=== PATIENT | female | born 1950 | race Caucasian/White ===

== ENCOUNTER 2016-11-09 14:52 | Emergency (ER) | payer MEDICARE, BC ==
[~2016-11-09] VITALS: Ht 167.6 cm; Wt 70.0 kg
[~2016-11-09 14:52] MED LIST: ASPI-664 PO; CALC1TAB79 PO; CARV3.1260 PO; CITA20TA11 PO; DOCU250C58 PO; GABA100C14 PO; IBUP800T25 PO; LAMO150T PO; LIOT25TA3 PO; LOSA100T7 PO; MULT1TAB6 PO; OLAN15TA7 PO; OLAN5TAB5 PO; OXYB10TA6 PO
[2016-11-09 15:00] VITALS: Ht 167.6 cm; Wt 70.0 kg
[2016-11-09] MEDS ORDERED: SOD CHLORIDE 0.9% 1,000 ML IV STA (15:07)
[2016-11-09] MEDS ORDERED: DIPHENOXYLATE/ATROPINE TAB PO ONE (15:30)
[2016-11-09] MEDS ORDERED: LORA0.5T PO (16:02)
[2016-11-09] MEDS ORDERED: IBUP-1542 PO (16:03)
[2016-11-09] MEDS ORDERED: OLAN5TAB5 PO (16:04)
[2016-11-09] MEDS ORDERED: CLC1500T PO (16:05)
[2016-11-09] MEDS ORDERED: ASPI-664 PO (16:06)
[2016-11-09 16:28] LABS: ADD SCAN DIFF NO
[2016-11-09 16:38] LABS: EOSINOPHILS # 0.1 10^3/ul (0.0-0.5); EOSINOPHILS % 2.4 % (0.0-7.0); HEMOGLOBIN 10.7 g/dl (12.0-16.0); LYMPHOCYTES # 0.8 10^3/ul (0.8-2.9); LYMPHOCYTES % 18.2 % (15.0-51.0); MEAN CORPUSCULAR HEMOGLOBIN 29.2 pg (29.0-33.0); MEAN CORPUSCULAR HGB CONC 32.4 g/dl (32.0-37.0); MEAN CORPUSCULAR VOLUME 90.2 fl (82.0-101.0); MEAN PLATELET VOLUME 10.5 fl (7.4-10.4); MONOCYTE # 0.4 10^3/ul (0.3-0.9); MONOCYTES % 9.2 % (0.0-11.0); NEUTROPHIL # 3.2 10^3/ul (1.6-7.5); PLATELET COUNT 183 10^3/UL (140-415); RED BLOOD COUNT 3.66 10^6/ul (4.20-5.40); RED CELL DISTRIBUTION WIDTH 13.8 % (11.5-14.5); WHITE BLOOD COUNT 4.6 10^3/ul (4.8-10.8)
[2016-11-09 16:56] LABS: ALBUMIN 3.4 g/dl (3.3-4.9)
[2016-11-09 16:57] LABS: POTASSIUM 3.5 mmol/L (3.5-5.1)
[2016-11-09 16:59] LABS: BILIRUBIN,INDIRECT 0.1 mg/dl (0-1.1); BILIRUBIN,TOTAL 0.1 mg/dl (0.2-1.3); CREATININE 0.72 mg/dl (0.44-1.00)
[2016-11-09 17:00] LABS: CALCIUM 8.7 mg/dl (8.4-10.2); TOTAL PROTEIN 6.1 g/dl (6.1-8.1)
[2016-11-09 17:01] LABS: ALBUMIN/GLOBULIN RATIO 1.25
[2016-11-09] MEDS ORDERED: DIPH1TAB PO (17:28)
--- NOTE | 2016-11-09 17:43 | ERD ---
ER Documentation Chief Complaint Date/Time DATE: 11/09/16 TIME: 17:42 Chief Complaint BIB BLS AMBULANCE FOR EVAL OF DIARRHEA. HPI Patient is a 58-year-old female with dementia who presents for diarrhea. Please note the history and physical exam is limited secondary to the patient's dementia. The patient was brought in by ambulance. She was sent from a nursing facility. The diarrhea started yesterday. She has no fevers and no vomiting. Upon review of old medical record she had one previous visit 2016. Her primary doctor is Dr. Jorgensen. ROS All systems reviewed and are negative except as per history of present illness. Medications Home Meds Active Scripts Diphenoxylate HCl/Atropine (Lomotil 2.5-0.025 mg Tablet) 1 Each Tablet, 1 TAB PO QID Y for DIARRHEA, #10 TAB Prov:FLOYD HAIDER MD 11/09/16 Reported Medications Aspirin* (Aspirin* EC) 81 Mg Tablet.dr, 81 MG PO DAILY, TAB 11/09/16 Calcium Carbonate* (Caltrate-600*) 600 MG Calcium Tab, 1200 MG PO DAILY, TAB (1500 mg Calcium Carbonate) 11/09/16 Olanzapine* (Zyprexa*) 5 Mg Tablet, 5 MG PO QHS, #30 TAB 11/09/16 Ibuprofen* (Ibuprofen*) 600 Mg Tablet, 600 MG PO BID Y for PRN, TAB 11/09/16 Lorazepam* (Lorazepam*) 0.5 Mg Tablet, 0.5 MG PO BID Y for ANXIETY, TAB 11/09/16 Citalopram Hydrobromide* (Celexa*) 20 Mg Tablet, 20 MG PO DAILY, #30 TAB 07/09/16 Losartan Potassium* (Losartan Potassium*) 100 Mg Tablet, 100 MG PO DAILY, TAB 07/09/16 Liothyronine Sodium* (Cytomel*) 25 Mcg Tablet, 25 MCG PO DAILY, TAB 07/09/16 Lamotrigine* (Lamotrigine*) 150 Mg Tablet, 150 MG PO QAM, TAB 07/09/16 Carvedilol* (Carvedilol*) 3.125 Mg Tablet, 3.125 MG PO BID, #60 TAB 07/09/16 Discontinued Reported Medications Ibuprofen* (Motrin*) 800 Mg Tab, 800 MG PO TID, TAB 07/09/16 Folic Acid/Mv,Fe,Other Min (Centrum Complete Multivit Tab) 1 Each Tablet, 1 EACH PO DAILY, TAB 07/09/16 Calcium Carbonate/Vitamin D3 (Oysco 500+D Tablet) 1 Each Tablet, 2 EACH PO DAILY , TAB 07/09/16 Aspirin (Low Dose Aspirin) 81 Mg Tablet.dr, 81 MG PO DAILY, #30 TAB 07/09/16 Olanzapine* (Zyprexa*) 5 Mg Tablet, 5 MG PO QHS, #30 TAB 07/09/16 Olanzapine* (Olanzapine*) 15 Mg Tablet, 30 MG PO DAILY, TAB 07/09/16 Gabapentin* (Gabapentin*) 100 Mg Capsule, 100 MG PO TID, #90 CAP 07/09/16 Docusate Sodium* (Colace*) 250 Mg Capsule, 250 MG PO DAILY, #30 CAP 07/09/16 Oxybutynin Chloride* (Ditropan* XL) 10 Mg Tab.er.24, 10 MG PO DAILY, TAB.SA 07/09/16 Allergies Allergies: Coded Allergies: No Known Allergy (Unverified , 11/09/16) PMhx/Soc History of Surgery: No Anesthesia Reaction: No Hx Neurological Disorder: Yes Hx Respiratory Disorders: No Hx Cardiac Disorders: Yes Hx Psychiatric Problems: No Hx Miscellaneous Medical Probl: Yes (depression, anxiety,hypothyroidism, neuropathy,psychosis) Hx Alcohol Use: No Hx Substance Use: No Hx Tobacco Use: No Smoking Status: Never smoker FmHx Unable to obtain Physical Exam Vitals Vital Signs Date Time Temp Pulse Resp B/P Pulse Ox O2 Delivery O2 Flow Rate FiO2 11/09/16 15:00 97.8 58 20 128/81 97 Physical Exam Const: No acute distress Head: Atraumatic Eyes: Normal Conjunctiva ENT: Normal External Ears, Nose and Mouth. Neck: Full range of motion..~ No meningismus. Resp: Clear to auscultation bilaterally Cardio: Regular rate and rhythm, no murmurs Abd: Soft, non tender, non distended. Normal bowel sounds Skin: No petechiae or rashes Back: No midline or flank tenderness Ext: No cyanosis, or edema Neur: Awake but demented at baseline Result Diagram: 11/09/16 1620 11/09/16 1620 Results 24 hrs Laboratory Tests Test 11/09/16 16:20 Alanine Aminotransferase (ALT/SGPT) 29IU/L Albumin 3.4g/dl Albumin/Globulin Ratio 1.25 Alkaline Phosphatase 81IU/L Anion Gap 16 Aspartate Amino Transf (AST/SGOT) 27IU/L Basophils # 0.010^3/ul Basophils % 0.0% Blood Urea Nitrogen 20mg/dl Calcium Level 8.7mg/dl Carbon Dioxide Level 24mmol/L Chloride Level 110mmol/L Creatinine 0.72mg/dl Direct Bilirubin 0.00mg/dl Eosinophils # 0.110^3/ul Eosinophils % 2.4% Globulin 2.70g/dl Glucose Level 74mg/dl Hematocrit 33.0% Hemoglobin 10.7g/dl Indirect Bilirubin 0.1mg/dl Lipase 64U/L Lymphocytes # 0.810^3/ul Lymphocytes % 18.2% Mean Corpuscular Hemoglobin 29.2pg Mean Corpuscular Hemoglobin Concent 32.4g/dl Mean Corpuscular Volume 90.2fl Mean Platelet Volume 10.5fl Monocytes # 0.410^3/ul Monocytes % 9.2% Neutrophils # 3.210^3/ul Neutrophils % 70.0% Nucleated Red Blood Cells # 0.010^3/ul Nucleated Red Blood Cells % 0.0/100WBC Platelet Count 66565^3/UL Potassium Level 3.5mmol/L Red Blood Count 3.6610^6/ul Red Cell Distribution Width 13.8% Sodium Level 146mmol/L Total Bilirubin 0.1mg/dl Total Protein 6.1g/dl White Blood Count 4.610^3/ul Current Medications Medications (Trade) Dose Ordered Sig/Jerod Route PRN Reason Start Time Stop Time Status Last Admin Dose Admin Sodium Chloride (NS) 1,000 ml @ 1,000 mls/hr Q1H STAT IV 11/09/16 15:07 11/09/16 16:06 DC 11/09/16 16:59 Diphenoxylate HCl/ Atropine (Lomotil) 2 tab ONCE ONCE PO 11/09/16 15:30 11/09/16 15:31 DC 11/09/16 17:27 Procedures/[facility] Patient is a 66-year-old female with dementia who presents with diarrhea. She was given Lomotil in the emergency department. Laboratory studies are basically normal and her electrolytes are normal. White blood cell count is normal and I doubt C. difficile diarrhea. The patient will be discharged back to the nursing facility. She was given 1 L of normal saline for fluid resuscitation. She can return for any worsening symptoms. She should follow- up with Dr. Jorgensen within 24-48 hours. She has anemia but does not require transfusion at this time. Departure Diagnosis: Primary Impression: Diarrhea Diarrhea type: unspecified type Qualified Code: R19.7 - Diarrhea, unspecified type Additional Impression: Anemia Anemia type: unspecified type Qualified Code: D64.9 - Anemia, unspecified type Condition: Fair Patient Instructions: Self-Care for Vomiting and Diarrhea Referrals: ARYA JORGENSEN MD Additional Instructions: Call your primary care doctor TOMORROW for an appointment during the next 1-2 days.See the doctor sooner or return here if your condition worsens before your appointment time. FLOYD HAIDER MD Nov 09, 2016 17:43
[2016-11-09 19:33] VITALS: BP 182/93; PULSE 88; RESP 18; TEMP 98
== END 2016-11-09 19:34 | disposition home or self-care (01) ==
LOC: E/R 14:52
DX: R19.7 Diarrhea, unspecified (principal); D64.9 Anemia, unspecified; E03.9 Hypothyroidism, unspecified; Z79.82 Long term (current) use of aspirin
CPT/HCPCS: 80053; 83690; 85025; 99284; J7030

== ENCOUNTER 2017-01-19 00:53 | Emergency (ER) | payer MEDICARE, BC ==
[~2017-01-19] VITALS: Ht 167.6 cm; Wt 64.0 kg
[~2017-01-19 00:53] MED LIST changes: -CALC1TAB79 PO; +CLC1500T PO; +DIPH1TAB PO; -DOCU250C58 PO; -GABA100C14 PO; +IBUP-1542 PO; -IBUP800T25 PO; +LORA0.5T PO; -MULT1TAB6 PO; -OLAN15TA7 PO; -OXYB10TA6 PO
[2017-01-19 01:18] VITALS: Ht 167.6 cm; Wt 64.0 kg
--- NOTE | 2017-01-19 01:56 | ERA ---
ER Documentation Chief Complaint Date/Time DATE: 01/19/17 TIME: 01:56 Chief Complaint SENT BY SNF FOR FALL WHILE USING THE TOILET, NO KO. PT DENIES COMPLAINTS HPI The patient is a 66-year-old female, presenting to the ER because she failed while she was using the toilet. She denies any symptom but wanted to go to the ER according to the signal engineer. The history is very limited to because she is demented Past medical history: Hypertension, hypothyroidism, dementia, anemia, depression ROS All systems reviewed and are negative except as per history of present illness. Medications Home Meds Active Scripts Diphenoxylate HCl/Atropine (Lomotil 2.5-0.025 mg Tablet) 1 Each Tablet, 1 TAB PO QID Y for DIARRHEA, #10 TAB Prov:FLOYD HAIDER MD 11/09/16 Reported Medications Aspirin* (Aspirin* EC) 81 Mg Tablet.dr, 81 MG PO DAILY, TAB 11/09/16 Calcium Carbonate* (Caltrate-600*) 600 MG Calcium Tab, 1200 MG PO DAILY, TAB (1500 mg Calcium Carbonate) 11/09/16 Olanzapine* (Zyprexa*) 5 Mg Tablet, 5 MG PO QHS, #30 TAB 11/09/16 Ibuprofen* (Ibuprofen*) 600 Mg Tablet, 600 MG PO BID Y for PRN, TAB 11/09/16 Lorazepam* (Lorazepam*) 0.5 Mg Tablet, 0.5 MG PO BID Y for ANXIETY, TAB 11/09/16 Citalopram Hydrobromide* (Celexa*) 20 Mg Tablet, 20 MG PO DAILY, #30 TAB 07/09/16 Losartan Potassium* (Losartan Potassium*) 100 Mg Tablet, 100 MG PO DAILY, TAB 07/09/16 Liothyronine Sodium* (Cytomel*) 25 Mcg Tablet, 25 MCG PO DAILY, TAB 07/09/16 Lamotrigine* (Lamotrigine*) 150 Mg Tablet, 150 MG PO QAM, TAB 07/09/16 Carvedilol* (Carvedilol*) 3.125 Mg Tablet, 3.125 MG PO BID, #60 TAB 07/09/16 Allergies Allergies: Coded Allergies: No Known Allergy (Unverified , 11/09/16) PMhx/Soc History of Surgery: No Anesthesia Reaction: No Hx Neurological Disorder: Yes (DEMENTIA) Hx Respiratory Disorders: No Hx Cardiac Disorders: Yes (HTN) Hx Psychiatric Problems: No Hx Miscellaneous Medical Probl: Yes (depression, anxiety,hypothyroidism, neuropathy,psychosis) Hx Alcohol Use: No Hx Substance Use: No Hx Tobacco Use: No Smoking Status: Never smoker Physical Exam Vitals Vital Signs Date Time Temp Pulse Resp B/P Pulse Ox O2 Delivery O2 Flow Rate FiO2 01/19/17 01:18 97.9 56 18 168/81 94 Physical Exam Const: No acute distress. Head: Atraumatic. Eyes: Normal Conjunctiva. ENT: Normal External Ears, Nose and Mouth. Neck: Full range of motion. No meningismus. Resp: Clear to auscultation bilaterally. Cardio: Regular rate and rhythm, no murmurs. Abd: Soft, non distended, normal bowel sounds, non tender. Skin: No petechiae or rashes. Back: No midline or flank tenderness. Ext: No cyanosis, or edema. Neur: Awake and alert. No focal deficit Psych: Demented Result Diagram: 01/19/17 0246 01/19/17 0246 Results 24 hrs Laboratory Tests Test 01/19/17 02:46 White Blood Count 5.410^3/ul Red Blood Count 4.0910^6/ul Hemoglobin 12.2g/dl Hematocrit 36.4% Mean Corpuscular Volume 89.0fl Mean Corpuscular Hemoglobin 29.8pg Mean Corpuscular Hemoglobin Concent 33.5g/dl Red Cell Distribution Width 13.7% Platelet Count 40799^3/UL Mean Platelet Volume 10.7fl Neutrophils % 73.5% Lymphocytes % 16.4% Monocytes % 7.8% Eosinophils % 1.9% Basophils % 0.0% Nucleated Red Blood Cells % 0.0/100WBC Neutrophils # 4.010^3/ul Lymphocytes # 0.910^3/ul Monocytes # 0.410^3/ul Eosinophils # 0.110^3/ul Basophils # 0.010^3/ul Nucleated Red Blood Cells # 0.010^3/ul Sodium Level 145mmol/L Potassium Level 3.9mmol/L Chloride Level 108mmol/L Carbon Dioxide Level 28mmol/L Anion Gap 13 Blood Urea Nitrogen 26mg/dl Creatinine 0.65mg/dl Glucose Level 87mg/dl Calcium Level 9.1mg/dl Current Medications Medications (Trade) Dose Ordered Sig/Jerod Route PRN Reason Start Time Stop Time Status Last Admin Dose Admin Olanzapine (Zyprexa) 5 mg ONCE ONCE PO 01/19/17 03:30 01/19/17 03:31 DC 01/19/17 03:44 Procedures/MDM MEDICAL MAKING DECISION: The patient is a 58-year-old female, presenting with acute mechanical fall without significant injury. The differential diagnoses considered include but are not limited to fracture, contusion, sprain Departure Diagnosis: Primary Impression: Fall with no significant injury Condition: Stable Comments I discussed the findings with the patient. I advised the patient to follow-up with the primary physician in about 1-2 days, sooner if needed and return if any concern. JASSI LAIRD MD January 19, 2017 01:56
[2017-01-19 02:50] LABS: ADD SCAN DIFF NO
[2017-01-19 02:53] LABS: EOSINOPHILS # 0.1 10^3/ul (0.0-0.5); EOSINOPHILS % 1.9 % (0.0-7.0); HEMATOCRIT 36.4 % (37.0-47.0); HEMOGLOBIN 12.2 g/dl (12.0-16.0); LYMPHOCYTES # 0.9 10^3/ul (0.8-2.9); LYMPHOCYTES % 16.4 % (15.0-51.0); MEAN CORPUSCULAR HEMOGLOBIN 29.8 pg (29.0-33.0); MEAN CORPUSCULAR HGB CONC 33.5 g/dl (32.0-37.0); MEAN PLATELET VOLUME 10.7 fl (7.4-10.4); MONOCYTE # 0.4 10^3/ul (0.3-0.9); MONOCYTES % 7.8 % (0.0-11.0); NEUTROPHILS % 73.5 % (39.0-77.0); PLATELET COUNT 166 10^3/UL (140-415); RED BLOOD COUNT 4.09 10^6/ul (4.20-5.40); RED CELL DISTRIBUTION WIDTH 13.7 % (11.5-14.5); WHITE BLOOD COUNT 5.4 10^3/ul (4.8-10.8)
[2017-01-19] MEDS ORDERED: OLANZAPINE 5 MG TAB PO ONE (03:30)
[2017-01-19 03:34] LABS: POTASSIUM 3.9 mmol/L (3.5-5.1)
[2017-01-19 03:37] LABS: CREATININE 0.65 mg/dl (0.44-1.00)
[2017-01-19 03:38] LABS: CALCIUM 9.1 mg/dl (8.4-10.2)
[2017-01-19 05:32] VITALS: PULSE 54
[2017-01-19 06:57] VITALS: BP 178/71; RESP 16
[2017-01-19] MEDS ORDERED: LOSARTAN 50 MG TAB PO ONE (07:00)
[2017-01-19] MEDS ORDERED: ONDA4TAB95 PO (16:51)
[2017-01-19] MEDS ORDERED: OLAN2.5T4 PO (16:52)
[2017-01-19] MEDS ORDERED: OLAN5TAB5 PO (16:53)
[2017-01-19] MEDS ORDERED: MULT1TAB PO (16:54)
[2017-01-19] MEDS ORDERED: OXYB10TA6 PO (16:54)
[2017-01-19] MEDS ORDERED: DOCU250C58 PO (16:54)
[2017-01-19] MEDS ORDERED: GABA100C14 PO (16:55)
== END 2017-01-19 08:12 | disposition home or self-care (01) ==
LOC: E/R 00:53
DX: Z04.3 Encounter for examination and observation following other accident (principal); I10 Essential (primary) hypertension; E03.9 Hypothyroidism, unspecified; Z79.82 Long term (current) use of aspirin
CPT/HCPCS: 80048; 85025; 99283

== ENCOUNTER 2017-01-19 15:24 | Observation (INO) | payer MEDICARE, BC ==
[~2017-01-19] VITALS: Ht 162.6 cm; Wt 72.0 kg
[2017-01-19] MEDS ORDERED: SOD CHLORIDE 0.9% 1,000 ML IV STA (15:30)
[2017-01-19 15:42] VITALS: Ht 162.6 cm; Wt 72.0 kg
--- NOTE | 2017-01-19 15:55 | RADRPT ---
PROCEDURE: XR Chest. CLINICAL INDICATION: Pain TECHNIQUE: Single frontal chest x-ray. COMPARISON: None. FINDINGS: No acute infiltrate, pleural effusion or pneumothorax is identified. Cardiomediastinal silhouette i s within normal limits. Aortic atherosclerotic calcification is noted. The osseous structures are unremarkable. IMPRESSION: 1. No evidence of acute cardiopulmonary process. 2. Aortic atherosclerosis. RPTAT: QQ .Miguel A Reilly MD, MD Date Time Electronically viewed and signed by .Miguel A Reilly MD, on 01/19/2017 15:54 .R/
[2017-01-19 16:40] LABS: ADD SCAN DIFF NO
[2017-01-19 16:45] LABS: BASOPHILS % 0.2 % (0.0-2.0); EOSINOPHILS # 0.2 10^3/ul (0.0-0.5); EOSINOPHILS % 2.8 % (0.0-7.0); HEMATOCRIT 38.9 % (37.0-47.0); HEMOGLOBIN 12.6 g/dl (12.0-16.0); LYMPHOCYTES # 1.2 10^3/ul (0.8-2.9); LYMPHOCYTES % 21.3 % (15.0-51.0); MEAN CORPUSCULAR HEMOGLOBIN 29.4 pg (29.0-33.0); MEAN CORPUSCULAR HGB CONC 32.4 g/dl (32.0-37.0); MEAN CORPUSCULAR VOLUME 90.7 fl (82.0-101.0); MONOCYTE # 0.6 10^3/ul (0.3-0.9); MONOCYTES % 10.7 % (0.0-11.0); NEUTROPHIL # 3.5 10^3/ul (1.6-7.5); NEUTROPHILS % 64.8 % (39.0-77.0); PLATELET COUNT 190 10^3/UL (140-415); RED BLOOD COUNT 4.29 10^6/ul (4.20-5.40); RED CELL DISTRIBUTION WIDTH 14.1 % (11.5-14.5); WHITE BLOOD COUNT 5.4 10^3/ul (4.8-10.8)
[2017-01-19] MEDS ORDERED: ONDA4TAB95 PO (16:51)
[2017-01-19] MEDS ORDERED: OLAN2.5T4 PO (16:52)
[2017-01-19] MEDS ORDERED: OLAN5TAB5 PO (16:53)
[2017-01-19] MEDS ORDERED: OXYB10TA6 PO (16:54)
[2017-01-19] MEDS ORDERED: MULT1TAB PO (16:54)
[2017-01-19] MEDS ORDERED: DOCU250C58 PO (16:54)
[2017-01-19] MEDS ORDERED: GABA100C14 PO (16:55)
[2017-01-19 17:08] LABS: ALANINE AMINOTRANSFERASE 34 IU/L (13-69); ALBUMIN 4.2 g/dl (3.3-4.9); ALBUMIN/GLOBULIN RATIO 1.27; ALKALINE PHOSPHATASE 106 IU/L (42-121); ANION GAP 14 (8-16); ASPARTATE AMINO TRANSFERASE 31 IU/L (15-46); BILIRUBIN,INDIRECT 0.4 mg/dl (0-1.1); BILIRUBIN,TOTAL 0.4 mg/dl (0.2-1.3); BLOOD UREA NITROGEN 24 mg/dl (7-20); CALCIUM 9.3 mg/dl (8.4-10.2); CARBON DIOXIDE 25 mmol/L (21-31); CHLORIDE 107 mmol/L (97-110); CREATININE 0.71 mg/dl (0.44-1.00); GLUCOSE 85 mg/dl (70-220); SODIUM 142 mmol/L (135-144); TOTAL PROTEIN 7.5 g/dl (6.1-8.1)
[2017-01-19 17:20] LABS: TROPONIN-I < 0.012 ng/ml (0.00-0.12)
[2017-01-19 17:20] LABS: ADD UMIC YES; URINE BILIRUBIN (Dip) NEGATIVE (NEGATIVE); URINE BLOOD (Dip) NEGATIVE (NEGATIVE); URINE COLOR YELLOW (YELLOW); URINE GLUCOSE (Dip) NEGATIVE (NEGATIVE); URINE KETONES (Dip) NEGATIVE (NEGATIVE); URINE LEUKOCYTE ESTERASE (Dip) TRACE (NEGATIVE); URINE NITRITE (Dip) NEGATIVE (NEGATIVE); URINE TOTAL PROTEIN (Dip) TRACE (NEGATIVE); URINE UROBILINOGEN (Dip) 1.0 E.U./dL (0.1-1.0)
[2017-01-19 17:27] LABS: BACTERIA,URINE FEW; MUCUS,URINE FEW; SQUAMOUS EPITHELIAL CELL,UR FEW; URINE RBCS NONE SEEN /HPF (0)
--- NOTE | 2017-01-19 17:58 | RADRPT ---
PROCEDURE: CT brain without contrast CLINICAL INDICATION: Altered mental status. Clinical concern for intracranial hemorrhage TECHNIQUE: A CT of the brain was performed utilizing axial sections from the skull base through th e vertex without contrast. Sagittal and coronal images were also reformatted. The exam CTDIvol = 45. 01 mGy and DLP = 810.25 mGy-cm. COMPARISON: CT 07/09/2016. MRI 07/10/2016. FINDINGS: No acute intracranial hemorrhage is identified. There is no mass effect or midline shift. No extra -axial fluid collection is seen. The ventricles and sulci are larger in size and configuration for the patient's provided age of 66 years consistent with severe advanced generalized atrophy. Low att enuation of the periventricular and subcortical white matter is again noted most pronounced in the f rontal lobe regions bilaterally. Macario-white differentiation is preserved with no findings to sugges t an acute ischemic infarct. The fourth ventricle is midline and there is no density alteration within the laura or cerebellum. The osseous structures are demineralized but otherwise unremarkable. Severe atherosclerotic calcific ation of the cavernous internal carotid arteries is again noted The mastoid air cells and visualized paranasal sinuses are clear. RPTAT:HJJR IMPRESSION: 1.Advanced atrophy for the patient's provided age with frontal lobe predominant white matter disease but no evidence of acute intracranial abnormality or interval change from 07/09/2016. 2. Severe atherosclerotic calcification of the cavernous internal carotid arteries. Physician Laura Date Time Electronically viewed and signed by Physician Laura on 01/19/2017 17:58 /
[2017-01-19] MEDS ORDERED: LORAZEPAM 2 MG INJ IV ONE ×2 (19:00→19:30)
[2017-01-19] MEDS ORDERED: ENALAPRILAT 1.25 MG INJ IV ONE (19:30)
--- NOTE | 2017-01-19 19:34 | ERA ---
ER Documentation Chief Complaint Date/Time DATE: 01/19/17 TIME: 19:29 Chief Complaint Fall yesterday unable to walk since the fall HPI 58-year-old woman brought in by EMS from intermediate for difficulty ambulating and frequent falls. She was just seen and evaluated a few hours earlier and a workup was unremarkable and patient was discharged. Family members were later at the bedside state her mental status is at baseline and she does have difficulty ambulating usually requiring a cane. She had no head or neck injury , no fevers or chills, no vomiting. HPI supplemented by speaking to family members, reviewing past medical history and intermediate records. ROS All systems reviewed and are negative except as per history of present illness. Medications Home Meds Reported Medications Gabapentin* (Gabapentin*) 100 Mg Capsule, 100 MG PO TID, #90 CAP 01/19/17 Multivitamin W-Minerals/Lutein (CEROVITE SENIOR TABLET) 1 Each Tablet, 1 EACH PO DAILY, TAB 01/19/17 Oxybutynin Chloride* (Ditropan* XL) 10 Mg Tab.er.24, 10 MG PO DAILY, TAB.SA 01/19/17 Docusate Sodium* (Colace*) 250 Mg Capsule, 250 MG PO QHS, #30 CAP 01/19/17 Olanzapine* (Zyprexa*) 5 Mg Tablet, 5 MG PO QHS, #30 TAB 01/19/17 Olanzapine* (Zyprexa*) 2.5 Mg Tablet, 2.5 MG PO QAM, #30 TAB 01/19/17 Ondansetron Hcl* (Ondansetron Hcl*) 4 Mg Tablet, 4 MG PO Q6H Y for NAUSEA AND/ OR VOMITING, TAB 01/19/17 Aspirin* (Aspirin* EC) 81 Mg Tablet.dr, 81 MG PO DAILY, TAB 11/09/16 Calcium Carbonate* (Caltrate-600*) 600 MG Calcium Tab, 1200 MG PO DAILY, TAB (1500 mg Calcium Carbonate) 11/09/16 Ibuprofen* (Ibuprofen*) 600 Mg Tablet, 600 MG PO BID Y for PRN, TAB 11/09/16 Lorazepam* (Lorazepam*) 0.5 Mg Tablet, 0.5 MG PO BID Y for ANXIETY, TAB 11/09/16 Citalopram Hydrobromide* (Celexa*) 20 Mg Tablet, 20 MG PO DAILY, #30 TAB 07/09/16 Losartan Potassium* (Losartan Potassium*) 100 Mg Tablet, 100 MG PO DAILY, TAB 07/09/16 Liothyronine Sodium* (Cytomel*) 25 Mcg Tablet, 25 MCG PO DAILY, TAB 07/09/16 Lamotrigine* (Lamotrigine*) 150 Mg Tablet, 150 MG PO QAM, TAB 07/09/16 Carvedilol* (Carvedilol*) 3.125 Mg Tablet, 3.125 MG PO BID, #60 TAB 07/09/16 Discontinued Reported Medications Olanzapine* (Zyprexa*) 5 Mg Tablet, 5 MG PO QHS, #30 TAB 11/09/16 Discontinued Scripts Diphenoxylate HCl/Atropine (Lomotil 2.5-0.025 mg Tablet) 1 Each Tablet, 1 TAB PO QID Y for DIARRHEA, #10 TAB Prov:FLOYD HAIDER MD 11/09/16 Allergies Allergies: Coded Allergies: No Known Allergy (Unverified , 01/19/17) PMhx/Soc Dementia, hypertension, possible psychiatric illness, difficulty ambulating History of Surgery: No Anesthesia Reaction: No Hx Neurological Disorder: Yes Hx Respiratory Disorders: No Hx Cardiac Disorders: Yes (HTN) Hx Psychiatric Problems: Yes (dementia) Hx Miscellaneous Medical Probl: No Hx Alcohol Use: No Hx Substance Use: No Hx Tobacco Use: No Smoking Status: Never smoker FmHx Family History: No diabetes Physical Exam Vitals Vital Signs Date Time Temp Pulse Resp B/P Pulse Ox O2 Delivery O2 Flow Rate FiO2 01/19/17 16:43 56 14 193/98 100 Room Air 01/19/17 15:42 98.2 67 20 150/87 99 Physical Exam GENERAL: Elderly woman, dehydrated, nontoxic in appearance, afebrile HEENT: Dry mucous membranes, pink conjunctiva, no cervical spine tenderness or step-off deformities, no goiter, no jaundice or icterus, extraocular movements intact without pain. No submandibular induration, and no pharyngeal erythema NEURO: Nonverbal, eyes open, no focal deficits or facial asymmetry, pupils equal round reactive to light moving her right upper extremity without difficulty CARDIAC: Bradycardic and regular, no murmurs rubs or gallops LUNGS: Clear bilaterally no wheezing crackles or stridor ABDOMEN: Soft nontender, no guarding, no rigidity, no rebound, no psoas sign no obturator sign. Normoactive bowel sounds SKIN: Warm and dry to touch, no abrasions, contusions, or hematomas, no lacerations, no ecchymosis, no target lesions, and without ulcers EXTREMITIES: No clubbing cyanosis or edema, calves are bilaterally symmetrical, no Homans sign, no popliteal cord sign. Distal pulses equal and bilateral PSYCH: Agitated Result Diagram: 01/20/17 0455 01/20/17 0455 Results 24 hrs Laboratory Tests Test 01/19/17 15:55 01/19/17 17:00 White Blood Count 5.410^3/ul Red Blood Count 4.2910^6/ul Hemoglobin 12.6g/dl Hematocrit 38.9% Mean Corpuscular Volume 90.7fl Mean Corpuscular Hemoglobin 29.4pg Mean Corpuscular Hemoglobin Concent 32.4g/dl Red Cell Distribution Width 14.1% Platelet Count 50437^3/UL Mean Platelet Volume 11.0fl Neutrophils % 64.8% Lymphocytes % 21.3% Monocytes % 10.7% Eosinophils % 2.8% Basophils % 0.2% Nucleated Red Blood Cells % 0.0/100WBC Neutrophils # 3.510^3/ul Lymphocytes # 1.210^3/ul Monocytes # 0.610^3/ul Eosinophils # 0.210^3/ul Basophils # 0.010^3/ul Nucleated Red Blood Cells # 0.010^3/ul Sodium Level 142mmol/L Potassium Level 4.0mmol/L Chloride Level 107mmol/L Carbon Dioxide Level 25mmol/L Anion Gap 14 Blood Urea Nitrogen 24mg/dl Creatinine 0.71mg/dl Glucose Level 85mg/dl Calcium Level 9.3mg/dl Total Bilirubin 0.4mg/dl Direct Bilirubin 0.00mg/dl Indirect Bilirubin 0.4mg/dl Aspartate Amino Transf (AST/SGOT) 31IU/L Alanine Aminotransferase (ALT/SGPT) 34IU/L Alkaline Phosphatase 106IU/L Troponin I < 0.012ng/ml Total Protein 7.5g/dl Albumin 4.2g/dl Globulin 3.30g/dl Albumin/Globulin Ratio 1.27 Lipase 88U/L Urine Color YELLOW Urine Clarity CLEAR Urine pH 5.5 Urine Specific [place] 1.025 Urine Ketones NEGATIVE Urine Nitrite NEGATIVE Urine Bilirubin NEGATIVE Urine Urobilinogen 1.0 E.U./dL Urine Leukocyte Esterase TRACE Urine Microscopic RBC NONE SEEN/HPF Urine Microscopic WBC 0-2/HPF Urine Squamous Epithelial Cells FEW Urine Bacteria FEW Urine Mucus FEW Urine Hemoglobin NEGATIVE Urine Glucose NEGATIVE% Urine Total Protein TRACE Current Medications Medications (Trade) Dose Ordered Sig/Jerod Route PRN Reason Start Time Stop Time Status Last Admin Dose Admin Sodium Chloride (NS) 1,000 ml @ 1,000 mls/hr Q1H STAT IV 01/19/17 15:30 01/19/17 16:29 DC 01/19/17 16:38 Procedures/MDM IV line was established patient was placed on cafeteria monitor rhythm strip revealed a sinus bradycardia at about 50 bpm with upright P and T waves. Patient was afebrile. EKG performed, read by me revealed a sinus bradycardia 52 bpm, normal axis, narrow QRS complex, no concerning ST elevations or depressions noted. CT scan of the brain was performed that was negative for acute bleed mass or shift. CBC was unremarkable, electrolytes normal, liver function tests normal, troponin negative. I administered 1 L normal saline intravenously. One AP view of the chest performed, read by me reveals no acute infiltrates, normal mediastinum, sharp costophrenic and cardiac borders, no air under the diaphragm. Otherwise unremarkable chest x-ray. Patient was hypertensive with a systolic over 200 mmHg and she required enalapril 1.25 mg IV later followed by hydralazine 20 mg IV with improvement in BP. Patient remained agitated while in the emergency department and required multiple doses of lorazepam intravenously. Departure Diagnosis: Primary Impression: Dementia Qualified Code: F03.91 - Dementia with behavioral disturbance, unspecified dementia type Additional Impressions: Frequent falls Dehydration Hypertension Qualified Code: I10 - Essential hypertension Condition: LYNETTE Cole MD January 19, 2017 19:34
[2017-01-19] MEDS ORDERED: LORAZEPAM 0.5 MG TAB PO PRN (20:00)
[2017-01-19] MEDS ORDERED: ZOLPIDEM 5 MG TAB PO PRN (20:00)
[2017-01-19] MEDS ORDERED: ACETAMINOPHEN 325 MG TAB PO PRN (20:00)
[2017-01-19] MEDS ORDERED: HYDROCODONE/APAP (5/325) TAB PO PRN (20:00)
[2017-01-19] MEDS ORDERED: ONDANSETRON 4 MG INJ IV PRN (20:00)
[2017-01-19] MEDS ORDERED: MAGNESIUM HYDROXIDE 30ML CUP PO PRN (20:00)
[2017-01-19] MEDS ORDERED: DOCUSATE SODIUM 100 MG CAP PO PRN (20:00)
[2017-01-19] MEDS ORDERED: morphine 2 MG INJ IV PRN (20:00)
[2017-01-19] MEDS ORDERED: NACL 0.9% 3 ML SYG IV SCH (20:00)
[2017-01-19] MEDS ORDERED: hydrALAzine 20 MG INJ IV ONE (20:00)
[2017-01-19 21:31] VITALS: BP 170/81; RESP 20
[2017-01-19] MEDS: GABAPENTIN 100 MG CAP PO SCH (21:47)
[2017-01-19] MEDS: DOCUSATE SODIUM 250 MG CAP PO SCH (21:47)
[2017-01-19] MEDS: OLANZAPINE 5 MG TAB PO SCH (21:47)
[2017-01-19] MEDS: SOD CHLORIDE 0.9% 1,000 ML IV SCH (21:51)
[2017-01-20] MEDS: PANTOPRAZOLE (EC) 40 MG TAB PO SCH (05:31)
[2017-01-20 06:20] LABS: ADD SCAN DIFF NO
[2017-01-20 06:26] LABS: BASOPHILS % 0.2 % (0.0-2.0); EOSINOPHILS # 0.2 10^3/ul (0.0-0.5); EOSINOPHILS % 3.2 % (0.0-7.0); HEMOGLOBIN 12.8 g/dl (12.0-16.0); LYMPHOCYTES # 0.9 10^3/ul (0.8-2.9); MEAN CORPUSCULAR HEMOGLOBIN 29.7 pg (29.0-33.0); MEAN CORPUSCULAR HGB CONC 32.8 g/dl (32.0-37.0); MEAN CORPUSCULAR VOLUME 90.5 fl (82.0-101.0); MEAN PLATELET VOLUME 11.7 fl (7.4-10.4); MONOCYTE # 0.5 10^3/ul (0.3-0.9); MONOCYTES % 9.3 % (0.0-11.0); NEUTROPHILS % 70.9 % (39.0-77.0); PLATELET COUNT 170 10^3/UL (140-415); RED BLOOD COUNT 4.31 10^6/ul (4.20-5.40); RED CELL DISTRIBUTION WIDTH 13.9 % (11.5-14.5); WHITE BLOOD COUNT 5.7 10^3/ul (4.8-10.8)
[2017-01-20 07:01] LABS: ALBUMIN 3.6 g/dl (3.3-4.9); ALBUMIN/GLOBULIN RATIO 1.09; BILIRUBIN,INDIRECT 0.4 mg/dl (0-1.1); BILIRUBIN,TOTAL 0.4 mg/dl (0.2-1.3); CALCIUM 8.9 mg/dl (8.4-10.2); CHOL/HDL RATIO 3.2 RATIO; CREATININE 0.55 mg/dl (0.44-1.00); POTASSIUM 3.1 mmol/L (3.5-5.1); TOTAL PROTEIN 6.9 g/dl (6.1-8.1)
[2017-01-20 07:15] VITALS: BP 183/91; RESP 18
[2017-01-20 07:27] LABS: THYROID STIMULATING HORMONE 0.994 MIU/L (0.465-4.680)
[2017-01-20] MEDS: CITALOPRAM 20 MG TAB PO SCH (09:34)
[2017-01-20] MEDS: ASPIRIN (EC) 81 MG TAB PO SCH (09:34)
[2017-01-20] MEDS: OXYBUTYNIN (XL) 5 MG TAB PO SCH (09:35)
[2017-01-20] MEDS: LAMOTRIGINE 100 MG TAB PO SCH (09:35)
[2017-01-20] MEDS: LOSARTAN 50 MG TAB PO SCH (09:35)
[2017-01-20] MEDS: GABAPENTIN 100 MG CAP PO SCH ×3 (09:35→21:22)
[2017-01-20] MEDS: LIOTHYRONINE 25 MCG TAB PO SCH (09:36)
[2017-01-20] MEDS: ENOXAPARIN 40 MG/0.4 ML SYG SC SCH (09:39)
[2017-01-20] MEDS: OLANZAPINE 2.5 MG TAB PO SCH (09:47)
[2017-01-20] MEDS: SOD CHLORIDE 0.9% 1,000 ML IV SCH ×2 (09:54→18:14)
[2017-01-20] MEDS ORDERED: POTASSIUM CHLORIDE (SR) 20 MEQ TAB PO STA (12:24)
[2017-01-20] MEDS: AMLODIPINE 5 MG TAB PO SCH ×2 (13:09→21:19)
--- NOTE | 2017-01-20 17:23 | HP ---
DATE OF ADMISSION: 01/19/2017 REASON FOR ADMISSION: Generalized weakness, dehydration, recurrent fall, hypertensive emergency. HISTORY OF PRESENT ILLNESS: The patient is an unfortunate 66-year-old female with history of frontotemporal dementia, hypothyroidism, hypertension, psychiatric disorder, depression, neuropa thy who resides at the assisted living facility at [facility], previously admitted to [facility] on 07/09/2016, with altered mental status. During that hospitalization, the pat paty underwent extensive neurological workup including MRI of the brain, multiple CT scans of the br ain and carotid Doppler. The MRI back in 07/10/2016 showed mild to moderate volume loss with modera te to severe chronic small vessel ischemic changes, most pronounced in the frontal regions. Carotid ultrasound at that time was unremarkable for significant stenosis. I have spoken to the patient's . His name is Emil, phone number [phone], and we discuss ed her condition. On a previous hospitalization, again back in July, she was seen by the neurol ogist, Dr. Garrett and based on his exam, there is no significant change and then today she continues to mumble, it is difficult to understand her, as she has scanning speech but not slurred speech. Ag ain, patient was in usual state of health up until earlier in the day prior to this admission when s he presented to the ER, status post fall while being in the bathroom. She underwent multiple diagno stic tests including a CT scan of the brain which showed advanced atrophy for the patient's provided age with frontal lobe predominant white matter disease, but no evidence of acute intracranial abnor mality or interval unchanged from 07/09/2016, severe atherosclerotic calcification of the cavernous internal carotid artery. She also underwent a chest x-ray which shows no evidence of acute cardiopu lmonary process. There is aortic atherosclerosis. Because of her second appearance in the ER, it was decided to admit the patient for further care as patient was also noted to have high blood pressure above 200, with 206/92 in the ER. Upon evaluatio n, the patient cannot provide much history is difficult to understand, though she speaks a few sente nces, but she does complete her sentences. She cannot answer my questions appropriately. This is m ost likely due to her progressive dementia. History is obtained from the and all records, t he patient is admitted for further care. PAST MEDICAL HISTORY: Includes dementia, psychiatric disorder, hypothyroidism, hypertension. SURGICAL HISTORY: Unknown. ALLERGIES: NO KNOWN DRUG ALLERGIES. FAMILY HISTORY: Unknown. SOCIAL HISTORY: The patient resides at [facility]. MEDICATIONS: Patient's medications reviewed, include the followin. Lorazepam 0.5 mg b.i.d. p.r.n. 2. Zofran 4 mg q.6h. p.r.n. nausea, vomiting. 3. Aspirin 81 mg daily. 4. Calcium plus D 600 mg 2 tablets daily. 5. Citalopram 20 mg daily. 6. Lamotrigine 150 mg daily. 7. Cytomel 25 mcg daily. 8. Losartan 100 mg daily. 9. Olanzapine 2.5 in the morning at 5 at night. 10. Coreg 3.125 b.i.d. 11. Ibuprofen 600 b.i.d. I am not sure if she takes ibuprofen routinely, as it is not listed. REVIEW OF SYSTEMS: Limited secondary to the patient's condition. The patient can ambulate with aracelis e assistance per her . PHYSICAL EXAMINATION: VITAL SIGNS: Temperature is 98.2, pulse 68, respirations 18, blood pressure 183/91, saturation 98%. GENERAL: The patient is in no acute distress, appears anxious, tapping her right hand on her thigh frequently. The patient is pale. CARDIOVASCULAR: S1 and S2, regular rate and rhythm. LUNGS: Clear bilaterally. ABDOMEN: Soft, nontender. EXTREMITIES: No clubbing, cyanosis, or edema. NEUROLOGIC: The patient is moving all extremities. Strength appears to be intact. EKG: Shows sinus bradycardia at 52 beats per minute, minimal voltage criteria for LVH, nonspecific T-wave abnormality. LABORATORY DATA: White count is 5.7, hemoglobin 12.8, hematocrit 39, platelet count 173, neutrophil s 71%, lymphocytes 16%. Chemistry: Sodium is 140, potassium is low at 3.1, chloride 105, bicarbona te is 30, BUN 15, creatinine 0.55, glucose of 88. LFTs: AST 27, ALT 30, alkaline phosphatase 93, a lbumin is 3.6, cholesterol is 155, LDL 94, HDL 48. TSH 0.994 and lipase of 88. Hemoglobin A1c is 5 .0. UA just shows trace leukocyte esterase, WBC 0 to 2, bacteria few, epithelial cells few. Urine appears clear, urine culture so far is negative. IMAGING TESTS: Chest x-ray was unremarkable. CT scan of the brain showed advanced atrophy for sid ent's provided age with frontal lobe predominant white matter disease with no evidence of acute intr acranial abnormality. ASSESSMENT AND PLAN: 1. This is an unfortunate 66-year-old female with advanced progressive dementia, arterios clerotic cardiovascular disease, hypertension and hypothyroidism who appears to be progressively dec lining, presents with recurrent fall, dehydration. 2. Recurrent fall, no acute finding on CT of the brain, no acute injuries on exam. Will initiate p hysical therapy to evaluate his gait and mobility, likely [place] secondary to her progressive dementi a. 3. Dementia, obtain B12 levels. Likely the dementia is a vascular type. Continue aspirin, will pu t her on a low-dose statin. Continue Aricept or Namenda. 4. Hypertensive urgency. Titrate medication up. Add calcium channel blockers. Continue beta bloc kers and ARB. 5. The patient to be placed on deep vein thrombosis prophylaxis and gastrointestinal prophylaxis. 6. Psychiatric disorder as confirmed by the . She has been on Zyprexa and Lamictal. Contin ue the same and monitor mood and behavior. 7. Hypokalemia. Potassium supplements will be provided. 8. Dehydration, improved with normal saline, monitor the patient's p.o. intake. We will follow the patient closely. 9. Hypothyroidism. Continue Cytomel, TSH is at range. We will follow. Dictated By: ARYA KNOWLES/BAUTISTA Conf#: [id number] DID#: [id number]
[2017-01-20 19:35] VITALS: BP_SYST 148; BP_SYST 164; BP_DIAS 77; BP_DIAS 83; RESP 20
[2017-01-20] MEDS ORDERED: ATORVASTATIN 20 MG TAB PO SCH (21:00)
[2017-01-20] MEDS: DOCUSATE SODIUM 250 MG CAP PO SCH (21:22)
[2017-01-20] MEDS: OLANZAPINE 5 MG TAB PO SCH (21:22)
[2017-01-21] VITALS: BP 112/59; PULSE 65; RESP 18
[2017-01-21] MEDS: PANTOPRAZOLE (EC) 40 MG TAB PO SCH (06:27)
[2017-01-21 06:45] LABS: CREATININE 0.67 mg/dl (0.44-1.00); POTASSIUM 3.2 mmol/L (3.5-5.1)
[2017-01-21 06:46] LABS: CALCIUM 8.7 mg/dl (8.4-10.2)
[2017-01-21] MEDS: SOD CHLORIDE 0.9% 1,000 ML IV SCH (07:02)
[2017-01-21 07:19] LABS: MAGNESIUM 1.9 mg/dl (1.7-2.5)
[2017-01-21 07:50] VITALS: BP 139/71; RESP 18
[2017-01-21] MEDS: LAMOTRIGINE 100 MG TAB PO SCH (10:08)
[2017-01-21] MEDS: LIOTHYRONINE 25 MCG TAB PO SCH (10:08)
[2017-01-21] MEDS: GABAPENTIN 100 MG CAP PO SCH ×2 (10:08→13:02)
[2017-01-21] MEDS: CITALOPRAM 20 MG TAB PO SCH (10:08)
[2017-01-21] MEDS: OXYBUTYNIN (XL) 5 MG TAB PO SCH (10:08)
[2017-01-21] MEDS: OLANZAPINE 2.5 MG TAB PO SCH (10:09)
[2017-01-21] MEDS: ASPIRIN (EC) 81 MG TAB PO SCH (10:09)
[2017-01-21] MEDS: LOSARTAN 50 MG TAB PO SCH (10:11)
[2017-01-21] MEDS: AMLODIPINE 5 MG TAB PO SCH (10:12)
[2017-01-21] MEDS: ENOXAPARIN 40 MG/0.4 ML SYG SC SCH (10:16)
[2017-01-21] MEDS ORDERED: POTASSIUM CHLORIDE 250 ML IVPB ONE (13:00)
--- NOTE | 2017-01-21 14:34 | PDOCDIS ---
Discharge Instructions CONDITION Patient Condition: Stable HOME CARE INSTRUCTIONS: Special Diet: 2gm na ACTIVITY: Activity Restrictions: Slowly Increase Activity FOLLOW UP/APPOINTMENTS Appointments see shantal, dc with home health per facility preference. ARYA MARIANO MD January 21, 2017 14:34
[2017-01-21] MEDS ORDERED: ATOR20TA65 PO (14:41)
[2017-01-21] MEDS ORDERED: CYAN500T46 PO (14:41)
[2017-01-21] MEDS ORDERED: AMLO-145 PO (14:41)
[2017-01-21] MEDS ORDERED: CYANOCOBALAMIN 1000 MCG INJ IM SCH (17:00)
--- NOTE | 2017-01-22 05:56 | DS ---
DATE OF ADMISSION: 01/19/2017 DATE OF DISCHARGE: 01/21/2017 REASON FOR ADMISSION: 1. Generalized weakness. 2. Dehydration. 3. Recurrent falls. 4. Hypertensive emergency. HOSPITAL COURSE: The patient is a 66-year-old female with frontotemporal dementia, hypoth yroidism, hypertension, psychiatric disorder, depression, neuropathy who resides at the [facility]. The patient presented after she was noted to be more confused. In the ER, she was noted to be dehydrated and with a blood pressure in the 200s. It was decided to ad deneen the patient for further care. During her hospitalization, I titrated her blood pressure medicat ions up, start her on IV fluids. Overall, the patient improved and she is back to baseline. The la boratory workup did reveal the patient to have B12 deficiency with B12 level of 269. I started on I M injections. She was noted to be hypokalemic, potassium supplements were given. The patient's t was advanced successfully and patient is doing fairly at baseline. The patient can be discharged with the following medications: 1. Ativan 0.5 b.i.d. p.r.n. for anxiety. 2. Cytomel 25 mcg daily. TSH level was at goal at 0.9. Also, she is on Ditropan XL 20 mg daily. 3. Vitamin B12 1000 daily. 4. Multivitamin 1 tablet daily. 5. Coreg 3.125 b.i.d. 6. Losartan 100 mg daily. 7. Amlodipine 5 mg b.i.d. 8. Lipitor 20 mg at bedtime. 9. Aspirin 81 daily. 10. Celexa 10 mg daily. 11. Neurontin 100 t.i.d. 12. Lamotrigine 150 daily. 13. Zyprexa 2.5 daily and 5 mg at bedtime. 14. Calcium plus D 600 b[address]i.d. She underwent a CT scan of the brain upon admission which showed advanced atrophy for the patient's provided age with frontal lobe predominant white matter disease with no evidence of acute intracrani al abnormality or interval change from 07/09/2016, there is severe atherosclerotic calcification of the left internal carotid arteries. On previous carotid ultrasound, it shows no significant stenos is. The patient will be discharged. FINAL DIAGNOSES: 1. Encephalopathy, slightly worse than baseline likely from dehydration. 2. Dehydration. 3. Hypokalemia. 4. B12 deficiency. 5. Progressive worsening vascular dementia. 6. Hypertensive emergency or urgency. 7. Psychiatric disorder. 8. Hypothyroidism. 9. Debilitated state. Case discussed with the brother, Kyaw. He is aware of plan of care and disposition. Again, if the patient does not do well there, she may consider shelter facility in the future. Case discu ssed with cyanide case hardener. The patient will be discharged back to [facility]. DIET: Soft mechanical 2 g sodium. ACTIVITY: As tolerated with physical therapy. DISPOSITION: The patient was discharged with home health. Dictated By: ARYA KNOWLES/BAUTISTA Conf#: [id number] DID#: [id number]
== END 2017-01-21 19:15 ==
LOC: E/R 15:24 → PP2 17:53 → INTOOBSV 17:53 → PP2 20:01
PROVIDERS: ADMIT Internal Medicine; ATTEND Internal Medicine
DX: G93.40 Encephalopathy, unspecified (principal); E86.0 Dehydration; F03.90 Unspecified dementia, unspecified severity, without behavioral disturbance, psychotic disturbance, mood disturbance, and anxiety; I16.0 Hypertensive urgency; E03.9 Hypothyroidism, unspecified; Z79.82 Long term (current) use of aspirin; E87.6 Hypokalemia; E53.8 Deficiency of other specified B group vitamins; R53.81 Other malaise; F99 Mental disorder, not otherwise specified; Z91.81 History of falling; F32.9 Major depressive disorder, single episode, unspecified; G62.9 Polyneuropathy, unspecified; I65.23 Occlusion and stenosis of bilateral carotid arteries
CPT/HCPCS: 36415; 70450; 71010; 80048; 80053; 80061; 81001; 82607; 83036; 83690; 83735; 84100; 84443; 84484; 85025; 86592; 87081; 87086; 93005; 96361; 96372; 96374; 96375; 99285; A4310; G0378; J0360; J1650; J2060; J3420; J3480; J7030; P9612; 81003

== ENCOUNTER 2017-02-07 05:39 | Emergency (ER) | payer MEDICARE, BC ==
[~2017-02-07] VITALS: Ht 160 cm; Wt 64.0 kg
[~2017-02-07 05:39] MED LIST changes: +AMLO-145 PO; +ATOR20TA65 PO; +CYAN500T46 PO; -DIPH1TAB PO; +DOCU250C58 PO; +GABA100C14 PO; -IBUP-1542 PO; +MULT1TAB PO; +OLAN2.5T4 PO; +OXYB10TA6 PO
[2017-02-07] MEDS ORDERED: ACETAMINOPHEN 500 MG TAB PO STA (05:40)
[2017-02-07 05:42] VITALS: Ht 160 cm; Wt 64.0 kg
[2017-02-07 06:04] LABS: ADD SCAN DIFF NO
[2017-02-07 06:05] LABS: BASOPHILS % 0.2 % (0.0-2.0); EOSINOPHILS # 0.2 10^3/ul (0.0-0.5); EOSINOPHILS % 4.1 % (0.0-7.0); HEMATOCRIT 34.2 % (37.0-47.0); HEMOGLOBIN 11.6 g/dl (12.0-16.0); LYMPHOCYTES # 1.1 10^3/ul (0.8-2.9); LYMPHOCYTES % 22.1 % (15.0-51.0); MEAN CORPUSCULAR HEMOGLOBIN 30.4 pg (29.0-33.0); MEAN CORPUSCULAR HGB CONC 33.9 g/dl (32.0-37.0); MEAN CORPUSCULAR VOLUME 89.8 fl (82.0-101.0); MEAN PLATELET VOLUME 10.3 fl (7.4-10.4); MONOCYTE # 0.4 10^3/ul (0.3-0.9); MONOCYTES % 7.4 % (0.0-11.0); NEUTROPHIL # 3.2 10^3/ul (1.6-7.5); NEUTROPHILS % 65.8 % (39.0-77.0); PLATELET COUNT 240 10^3/UL (140-415); RED BLOOD COUNT 3.81 10^6/ul (4.20-5.40); RED CELL DISTRIBUTION WIDTH 13.4 % (11.5-14.5); WHITE BLOOD COUNT 4.9 10^3/ul (4.8-10.8)
[2017-02-07 06:08] VITALS: BP 171/105; PULSE 61; RESP 16; TEMP 97.3
[2017-02-07 06:23] LABS: INR 0.98
[2017-02-07 06:24] LABS: PARTIAL THROMBOPLASTIN TIME 27.9 Sec (25.0-35.0)
[2017-02-07 06:25] LABS: ANION GAP 5 (8-16); BLOOD UREA NITROGEN 19 mg/dl (7-20); CALCIUM 8.6 mg/dl (8.4-10.2); CARBON DIOXIDE 32 mmol/L (21-31); CHLORIDE 111 mmol/L (97-110); CREATINE KINASE 44 IU/L (23-200); CREATININE 0.55 mg/dl (0.44-1.00); GLUCOSE 84 mg/dl (70-220); POTASSIUM 3.4 mmol/L (3.5-5.1); SODIUM 145 mmol/L (135-144)
[2017-02-07] MEDS ORDERED: morphine 2 MG INJ IV ONE (06:30)
[2017-02-07 06:40] LABS: TROPONIN-I < 0.012 ng/ml (0.00-0.12)
--- NOTE | 2017-02-07 06:50 | RADRPT ---
PROCEDURE: XR Chest. CLINICAL INDICATION: Trauma TECHNIQUE: Portable single view of the chest COMPARISON: 07/09/2016 FINDINGS: Again seen are reduced lung volumes and cardiomegaly. Slightly prominent paratracheal soft tissues are again seen . Aortic calcification. Loose bodies in the right subcoracoid bursa are again seen. No definite acute infiltrate, pleural effusion, or overt congestive heart failure. Slight bibasil ar crowding. Right upper quadrant clips. Top normal pulmonary vascularity. No definite acute fract ure or pneumothorax. Probable old left rib fracture. IMPRESSION: Shallow lung volumes. Cardiomegaly and top normal pulmonary vascularity. RPTAT: HLBE Physician Gail Date Time Electronically viewed and signed by Jeri Zapien Physician on 02/07/2017 06:50 LE/
--- NOTE | 2017-02-07 06:52 | RADRPT ---
PROCEDURE: CT Brain without contrast. CLINICAL INDICATION: Trauma TECHNIQUE: CT scan of the brain was performed on a multidetector high-resolution CT scan. Axial im aging was obtained of the brain without contrast administration. Coronal and sagittal reformatted i mages were obtained from the axial source images. Standard CT scan of the head without contrast prot ocols were performed. The total exam CTDI equals 44.52 mGy and the total exam DLP equals 810.25 mGy-cm. One or more of the following dose reduction techniques were used: - Automated exposure control. - Adjustment of the mA and/or kV according to patient size. Use of iterative reconstruction technique. COMPARISON: CT scan of the head without contrast 07/09/2016 FINDINGS: There is no significant change. Again noted is diffuse ventriculomegaly without midline shift. The re is symmetrical prominence of the peripheral CSF spaces worse involving the frontal lobe consisten t with cerebral volume loss. There is extensive periventricular deep white matter changes that is n onspecific and consistent with chronic microvascular ischemic disease. Negative for intracranial ma sses or hemorrhages. The kelly-white matter junction is unremarkable. The bones and calvarium are u nremarkable. The paranasal sinuses and mastoids are unremarkable. IMPRESSION: 1. No significant change. 2. Generalized cerebral volume loss worse involving the frontal lobes and extensive nonspecific chr onic microvascular ischemic disease. 3. No evidence of intracranial masses hemorrhages or midline shift. RPTAT:AAJJ Physician Rachel Date Time Electronically viewed and signed by Physician Rachel on 02/07/2017 06:52 /
--- NOTE | 2017-02-07 06:54 | RADRPT ---
PROCEDURE: XR Pelvis. CLINICAL INDICATION: Trauma TECHNIQUE: Single AP view of the pelvis. COMPARISON: No prior studies are available for comparison. FINDINGS: No fracture or dislocation is seen. No lytic or blastic lesion is seen. No significant degenerative change. No abnormal calcifications are seen. IMPRESSION: No definite acute bony abnormality. RPTAT: HLBE Jeri Zapien Physician Date Time Electronically viewed and signed by Jeri Zapien, Physician on 02/07/2017 06:54 LE/
[2017-02-07] MEDS ORDERED: POTASSIUM CHLORIDE (SR) 20 MEQ TAB PO ONE (06:58)
[2017-02-07] MEDS ORDERED: SOD CHLORIDE 0.9% 500 ML IV ONE (07:00)
--- NOTE | 2017-02-07 07:00 | RADRPT ---
PROCEDURE: CT scan of the facial bone without contrast. CLINICAL INDICATION: Trauma TECHNIQUE: CT scan of the facial bone without contrast was performed on a multidetector high-reso lution CT scan. Standard CT scan of the facial bone without contrast protocols were performed. The total exam CTDI equals 29.53 mGy and the total exam DLP equals 593.3 mGy-cm. One or more of the following dose reduction techniques were used: - Automated exposure control. - Adjustment of the mA and/or kV according to patient size. Use of iterative reconstruction technique. COMPARISON: None. FINDINGS: There are no acute facial fractures. The bony mineralization is normal without focal bony blastic o r lytic lesions. There are numerous chronic absent teeth. There are prostatic teeth without eviden ce of loosening. The temporomandibular joints are unremarkable. There is minimal mucosal thickenin g involving the right maxillary sinus. Mild mucosal thickening involving the ethmoid sinuses. Alis gildardo the paranasal sinuses are well pneumatized and there is no air-fluid levels present. The mast oids are unremarkable. The globes are symmetrical without evidence of rupture or proptosis. There is no evidence of intra or extraconal fluid collections. The optic nerves in all, muscles are unrem arkable. There is atherosclerotic heart plaque involving the distal vertebral arteries, cavernous a nd supraclinoid portions of the distal internal carotid arteries and right left distal internal peterson tid arteries at the level of the superior neck. IMPRESSION: 1. No evidence of acute fractures. 2. Chronic sinus disease as described above without evidence of air-fluid levels. 3. Unremarkable orbits. RPTAT:AAJJ Physician Rachel Date Time Electronically viewed and signed by Physician Rachel on 02/07/2017 06:59 BM/
--- NOTE | 2017-02-07 07:06 | RADRPT ---
PROCEDURE: CT cervical spine without contrast. CLINICAL INDICATION: Trauma TECHNIQUE: Axial imaging was obtained through the cervical spine using a multi-slice CT scanner. [facility] of the cervical spine without contrast protocols were performed. CTDI: 22.33 and DLP: 595.76. One or more of the following dose reduction techniques were used: - Automated exposure control. - Adjustment of the mA and/or kV according to patient size. Use of iterative reconstruction technique. COMPARISON: None. FINDINGS: There is no evidence of acute fractures or subluxations. The bony mineralization is normal. No foc al bony blastic or lytic lesions. There is moderate degenerate disease of the C2-3, C4-5, C5-6 and C6-7 discs worse at the C5-6 and C6-7 disk levels. There is mild posterior broad-based disk bulge at the C3-4 disk level. There is no evidence of central spinal canal stenosis there is right C4-5, bi lateral C5-6 and right C6-7 neural foraminal narrowing. Remainder the neural foramen are symmetrica lly patent. There is degenerative changes of the left C3-C4 lateral masses. There is no evidence o f prevertebral soft tissue swelling. There is atherosclerotic vascular disease of the internal peterson tid arteries and distal vertebral arteries. Those portions the upper lung pleural and airway visual ized are unremarkable. IMPRESSION: 1. No evidence of acute fractures or subluxations. 2. Degenerative changes in neural foraminal narrowing as above. 3. No evidence of central spinal canal stenosis. 4. Atherosclerosis. RPTAT:AAJJ Physician Rachel Date Time Electronically viewed and signed by Physician Rachel on 02/07/2017 07:06 BM/
--- NOTE | 2017-02-07 07:09 | RADRPT ---
PROCEDURE: Right femur series CLINICAL INDICATION: Trauma TECHNIQUE: AP and lateral views of the right femur were obtained COMPARISON: None FINDINGS: There is mild degenerate joint disease of the right hip and moderate degenerative joint disease of t he right knee. No evidence of acute fractures or dislocations. The bony mineralization is normal. No focal bony blastic or lytic lesions. The soft tissues are unremarkable. IMPRESSION: Degenerate joint disease right hip and knee joints without evidence of acute fractures or dislocatio ns. RPTAT:AAJJ Physician Rachel Date Time Electronically viewed and signed by Otoniel Mares Physician on 02/07/2017 07:08 BM/
[2017-02-07 07:53] LABS: URINE BLOOD (Dip) POC Negative (NEGATIVE)
[2017-02-07] MEDS ORDERED: LABETALOL HCL 20MG INJ ONE (08:13)
[2017-02-07] MEDS ORDERED: ACET325T33 PO (08:13)
[2017-02-07] MEDS ORDERED: LABETALOL HCL 20MG INJ IV ONE (08:30)
[2017-02-07] MEDS ORDERED: DIPHTH/TET/ACEL PERTUSS (ADULT) 0.5 ML VIAL IM* ONE (08:30)
--- NOTE | 2017-02-07 08:53 | ERD ---
ER Documentation Chief Complaint Date/Time DATE: 02/07/17 TIME: 08:48 Chief Complaint unwitnessed ground level fall in bathroom, face abrasion/edema HPI This 66-year-old female presents emergency room with an unwitnessed ground- level fall in her bathroom. According to paramedics staff estimated the patient had been laying face down for almost an hour. She has swelling of her left upper lip as well as above her left thigh. Abrasions in both areas. States that she has pain at the sites and no other pain. Patient suffers from severe dementia and is not able to answer questions well. Proper history is not possible. She does deny pain and he reports of her body. Denies recent illness. ROS Unreliable secondary to patient's chronic condition Medications Home Meds Active Scripts Acetaminophen* (Tylenol*) 325 Mg Tablet, 325 MG PO Q6H Y for PAIN AND OR ELEVATED TEMP, #20 TAB Prov:HEENABART 02/07/17 Cyanocobalamin* (Vitamin B12*) 500 Mcg Tab, 1000 MCG PO DAILY for 30 Days, TAB Prov:RAYA MARIANO MD 01/21/17 Atorvastatin Calcium (Atorvastatin Calcium) 20 Mg Tablet, 20 MG PO HS for 30 Days, TAB Prov:ARYA MARIANO MD 01/21/17 Amlodipine Besylate* (Amlodipine Besylate*) 5 Mg Tablet, 5 MG PO BID for 30 Days , TAB Prov:ARYA MARIANO MD 01/21/17 Reported Medications Gabapentin* (Gabapentin*) 100 Mg Capsule, 100 MG PO TID, #90 CAP 01/19/17 Multivitamin W-Minerals/Lutein (CEROVITE SENIOR TABLET) 1 Each Tablet, 1 EACH PO DAILY, TAB 01/19/17 Oxybutynin Chloride* (Ditropan* XL) 10 Mg Tab.er.24, 10 MG PO DAILY, TAB.SA 01/19/17 Docusate Sodium* (Colace*) 250 Mg Capsule, 250 MG PO QHS, #30 CAP 01/19/17 Olanzapine* (Zyprexa*) 5 Mg Tablet, 5 MG PO QHS, #30 TAB 01/19/17 Olanzapine* (Zyprexa*) 2.5 Mg Tablet, 2.5 MG PO QAM, #30 TAB 01/19/17 Aspirin* (Aspirin* EC) 81 Mg Tablet.dr, 81 MG PO DAILY, TAB 11/09/16 Calcium Carbonate* (Caltrate-600*) 600 MG Calcium Tab, 1200 MG PO DAILY, TAB (1500 mg Calcium Carbonate) 11/09/16 Lorazepam* (Lorazepam*) 0.5 Mg Tablet, 0.5 MG PO BID Y for ANXIETY, TAB 11/09/16 Citalopram Hydrobromide* (Celexa*) 20 Mg Tablet, 20 MG PO DAILY, #30 TAB 07/09/16 Losartan Potassium* (Losartan Potassium*) 100 Mg Tablet, 100 MG PO DAILY, TAB 07/09/16 Liothyronine Sodium* (Cytomel*) 25 Mcg Tablet, 25 MCG PO DAILY, TAB 07/09/16 Lamotrigine* (Lamotrigine*) 150 Mg Tablet, 150 MG PO QAM, TAB 07/09/16 Carvedilol* (Carvedilol*) 3.125 Mg Tablet, 3.125 MG PO BID, #60 TAB 07/09/16 Allergies Allergies: Coded Allergies: No Known Allergy (Unverified , 02/07/17) PMhx/Soc History of Surgery: No Anesthesia Reaction: No Hx Neurological Disorder: Yes Hx Respiratory Disorders: No Hx Cardiac Disorders: Yes (HTN, dementia) Hx Psychiatric Problems: Yes (dementia) Hx Miscellaneous Medical Probl: No Hx Alcohol Use: No Hx Substance Use: No Hx Tobacco Use: No Smoking Status: Never smoker Physical Exam Vitals Vital Signs Date Time Temp Pulse Resp B/P Pulse Ox O2 Delivery O2 Flow Rate FiO2 02/07/17 06:08 97.3 61 16 171/105 100 Room Air 02/07/17 05:42 97.3 58 18 172/96 100 Physical Exam Const: [] No distress Head: Atraumatic Eyes: Normal Conjunctiva, EOMI, PRL ENT: Normal External Ears, nasal passages no septal hematoma or swelling, erythema and swelling to left lower lip as well as part of the right upper lip, abrasion and slight swelling above left eye. Tympanic membranes clear bilaterally without fluid or blood, mucous membranes of the mouth moist Neck: Full range of motion..~ No meningismus. Resp: Clear to auscultation bilaterally Cardio: Regular rate and rhythm, no murmurs Abd: Soft, non tender, non distended. Normal bowel sounds Skin: No petechiae or rashes Back: No midline or flank tenderness Ext: No cyanosis, or edema Neur: Awake and alert and oriented 2, not oriented to time, able to move all 4 extremities with purposeful movements, no focal deficits Psych: Normal Mood and Affect Result Diagram: 02/07/17 0555 02/07/17 0555 Results 24 hrs Laboratory Tests Test 02/07/17 05:55 02/07/17 07:55 White Blood Count 4.910^3/ul Red Blood Count 3.8110^6/ul Hemoglobin 11.6g/dl Hematocrit 34.2% Mean Corpuscular Volume 89.8fl Mean Corpuscular Hemoglobin 30.4pg Mean Corpuscular Hemoglobin Concent 33.9g/dl Red Cell Distribution Width 13.4% Platelet Count 92739^3/UL Mean Platelet Volume 10.3fl Neutrophils % 65.8% Lymphocytes % 22.1% Monocytes % 7.4% Eosinophils % 4.1% Basophils % 0.2% Nucleated Red Blood Cells % 0.0/100WBC Neutrophils # 3.210^3/ul Lymphocytes # 1.110^3/ul Monocytes # 0.410^3/ul Eosinophils # 0.210^3/ul Basophils # 0.010^3/ul Nucleated Red Blood Cells # 0.010^3/ul Prothrombin Time 13.0Sec Prothrombin Time Ratio 1.0 INR International Normalized Ratio 0.98 Activated Partial Thromboplast Time 27.9Sec Sodium Level 145mmol/L Potassium Level 3.4mmol/L Chloride Level 111mmol/L Carbon Dioxide Level 32mmol/L Anion Gap 5 Blood Urea Nitrogen 19mg/dl Creatinine 0.55mg/dl Glucose Level 84mg/dl Calcium Level 8.6mg/dl Creatine Kinase 44IU/L Troponin I < 0.012ng/ml Bedside Urine pH (LAB) 7.0 Bedside Urine Protein (LAB) Negative Bedside Urine Glucose (UA) Negative Bedside Urine Ketones (LAB) Negative Bedside Urine Blood Negative Bedside Urine Nitrite (LAB) Negative Bedside Urine Leukocyte Esterase (L Negative Current Medications Medications (Trade) Dose Ordered Sig/Jerod Route PRN Reason Start Time Stop Time Status Last Admin Dose Admin Acetaminophen (Tylenol Tab) 1,000 mg ONCE STAT PO 02/07/17 05:40 02/07/17 05:43 DC 02/07/17 05:53 Morphine Sulfate (morphine) 2 mg ONCE ONCE IV 02/07/17 06:30 02/07/17 06:31 DC 02/07/17 06:14 Potassium Chloride 20 meq 20 meq ONCE ONCE PO 02/07/17 06:58 02/07/17 06:59 DC 02/07/17 07:09 Sodium Chloride (NS) 500 ml @ 500 mls/hr Q1H ONCE IV 02/07/17 07:00 02/07/17 07:59 DC 02/07/17 07:07 Diphtheria/ Tetanus/Acell Pertussis (Adacel) 0.5 ml ONCE ONCE IM* 02/07/17 08:30 02/07/17 08:31 DC 02/07/17 08:33 Labetalol HCl (Labetalol) 10 mg ONCE ONCE IV 02/07/17 08:30 02/07/17 08:31 DC 02/07/17 08:29 Labetalol HCl (Labetalol) 20 mg STK-MED ONCE .ROUTE 02/07/17 08:13 02/07/17 08:14 DC Procedures/MDM Ground-level fall in elderly patient with dementia resulting in contusions only , fortunately. Full workup was obtained to look for possible cardiac causes and possible fractures or cranial damage. No signs of infection peer patient has a nonischemic workup with no signs of CK elevation or change from her normal mental status. She feels well. At this point I do not see how she would benefit from hospital admission. She has been monitored for hours and is emergency room without incident. It is appropriate now to send her back to her facility with primary care follow-up. EKG interpretation: Normal sinus rhythm, rate of 60, normal axis, no ST or T- wave changes concerning for acute ischemia. Nonspecific ST-T wave abnormality. Normal EKG experimental rocketsled mechanic interpretation: Normal sinus rhythm without arrhythmia CT head interpretation: I see no acute process. I see no hemorrhage, no mass- effect no midline shift, no skull fracture. Facial CT interpretation: No fracture dislocation. Mild sinus disease. Orbits intact. C-spine CT interpretation: Degenerative joint disease without fracture or subluxation. Chest x-ray interpretation: I see no acute process, no vitamins tandem, no pneumothorax, no fractures, no infiltrates. Femur x-ray interpretation: Normal femur x-ray. No fracture dislocation or soft tissue swelling Pelvis x-ray interpretation: See no acute fracture dislocation. Departure Diagnosis: Primary Impression: Fall Additional Impressions: Facial contusion Head injury Condition: Stable Patient Instructions: Facial Contusion, No Wakeup, Fall, Uncertain Cause, Fall Prevention Additional Instructions: Call your primary care doctor TOMORROW for an appointment during the next 1-2 days.See the doctor sooner or return here if your condition worsens before your appointment time. BART NAIK DO Feb 07, 2017 08:53
== END 2017-02-07 08:42 | disposition home or self-care (01) ==
LOC: E/R 05:39
DX: S00.83XA Contusion of other part of head, initial encounter (principal); S09.90XA Unspecified injury of head, initial encounter; I10 Essential (primary) hypertension; R40.2142 Coma scale, eyes open, spontaneous, at arrival to emergency department; R40.2362 Coma scale, best motor response, obeys commands, at arrival to emergency department; R40.2242 Coma scale, best verbal response, confused conversation, at arrival to emergency department; W18.39XA Other fall on same level, initial encounter; Y92.002 Bathroom of unspecified non-institutional (private) residence as the place of occurrence of the external cause; Z79.82 Long term (current) use of aspirin; Z23 Encounter for immunization
CPT/HCPCS: 70450; 70486; 71010; 72125; 72170; 73550; 80048; 81003; 82550; 84484; 85025; 85610; 85730; 90715; 93005; A4310; J2270; J7040; 90471; 96374; 96375

== ENCOUNTER 2017-03-28 12:39 | Observation (INO) | payer MEDICARE, BC ==
[~2017-03-28] VITALS: Ht 167.6 cm; Wt 69.9 kg
[~2017-03-28 12:39] MED LIST changes: +ACET325T33 PO
[2017-03-28] MEDS ORDERED: SODIUM CHLORIDE 0.9% 1L BAG IV* STA (13:00)
--- NOTE | 2017-03-28 13:25 | ERA ---
ER Documentation Chief Complaint Date/Time DATE: 03/28/17 TIME: 13:15 Chief Complaint ALOC FOR A FEW SECONDS, PER STAFF. NO TRAUMA. BACK TO BASELINE NOW HPI This is a 66-year-old female that presents from [facility] for sudden change in her mental status that lasted for a few seconds. Patient has a history of hypertension high cholesterol and dementia. It is unknown if the patient can ambulate at baseline. EMS indicated that nursing staff stated the patient was sitting down about to eat lunch when she developed a possible brief transient loss of consciousness and her head fell down and hit the table. This lasted for several seconds, with loss of postural tone and then complete spontaneous recovery. The patient has not had any recent fever shaking or chills. She has not complained of any chest pain or pressure that radiates to the neck arm back or jaw. She is not currently on any antibiotics no recent hospitalizations. ROS All systems reviewed and are negative except as per history of present illness. Medications Home Meds Active Scripts Acetaminophen* (Tylenol*) 325 Mg Tablet, 325 MG PO Q6H Y for PAIN AND OR ELEVATED TEMP, #20 TAB Prov:BART NAIK DO 02/07/17 Cyanocobalamin* (Vitamin B12*) 500 Mcg Tab, 1000 MCG PO DAILY for 30 Days, TAB Prov:ARYA MARIANO MD 01/21/17 Atorvastatin Calcium (Atorvastatin Calcium) 20 Mg Tablet, 20 MG PO HS for 30 Days, TAB Prov:ARYA MARIANO MD 01/21/17 Amlodipine Besylate* (Amlodipine Besylate*) 5 Mg Tablet, 5 MG PO BID for 30 Days , TAB Prov:ARYA MARIANO MD 01/21/17 Reported Medications Gabapentin* (Gabapentin*) 100 Mg Capsule, 100 MG PO TID, #90 CAP 01/19/17 Multivitamin W-Minerals/Lutein (CEROVITE SENIOR TABLET) 1 Each Tablet, 1 EACH PO DAILY, TAB 01/19/17 Oxybutynin Chloride* (Ditropan* XL) 10 Mg Tab.er.24, 10 MG PO DAILY, TAB.SA 01/19/17 Docusate Sodium* (Colace*) 250 Mg Capsule, 250 MG PO QHS, #30 CAP 01/19/17 Olanzapine* (Zyprexa*) 5 Mg Tablet, 5 MG PO QHS, #30 TAB 01/19/17 Olanzapine* (Zyprexa*) 2.5 Mg Tablet, 2.5 MG PO QAM, #30 TAB 01/19/17 Aspirin* (Aspirin* EC) 81 Mg Tablet.dr, 81 MG PO DAILY, TAB 11/09/16 Calcium Carbonate* (Caltrate-600*) 600 MG Calcium Tab, 1200 MG PO DAILY, TAB (1500 mg Calcium Carbonate) 11/09/16 Lorazepam* (Lorazepam*) 0.5 Mg Tablet, 0.5 MG PO BID Y for ANXIETY, TAB 11/09/16 Citalopram Hydrobromide* (Celexa*) 20 Mg Tablet, 20 MG PO DAILY, #30 TAB 07/09/16 Losartan Potassium* (Losartan Potassium*) 100 Mg Tablet, 100 MG PO DAILY, TAB 07/09/16 Liothyronine Sodium* (Cytomel*) 25 Mcg Tablet, 25 MCG PO DAILY, TAB 07/09/16 Lamotrigine* (Lamotrigine*) 150 Mg Tablet, 150 MG PO QAM, TAB 07/09/16 Carvedilol* (Carvedilol*) 3.125 Mg Tablet, 3.125 MG PO BID, #60 TAB 07/09/16 Allergies Allergies: Coded Allergies: No Known Allergy (Unverified , 02/07/17) PMhx/Soc History of Surgery: No Anesthesia Reaction: No Hx Neurological Disorder: Yes Hx Respiratory Disorders: No Hx Cardiac Disorders: Yes (HTN, dementia) Hx Psychiatric Problems: Yes (dementia) Hx Miscellaneous Medical Probl: No Hx Alcohol Use: No Hx Substance Use: No Hx Tobacco Use: No Smoking Status: Never smoker Physical Exam Vitals Vital Signs Date Time Temp Pulse Resp B/P Pulse Ox O2 Delivery O2 Flow Rate FiO2 03/28/17 17:29 55 17 133/70 99 03/28/17 13:39 56 19 124/71 99 Room Air 03/28/17 12:54 98.8 56 20 122/73 98 Physical Exam Constitutional:Well-developed. Well-nourished. HEENT:Normocephalic. Atraumatic.Pupils were equal round reactive to light. Very dry mucous membranes.No tonsillar exudates. No nasoseptal hematoma. No hemotympanum. Neck: No nuchal rigidity. No lymphadenopathy. No posterior cervical spine tenderness or step-offs. Respiratory: Not using accessory muscles of respiration.Lungs were clear to auscultation bilaterally. No rhonchi. No rales. No wheezing. Cardiovascular: Regular rate regular rhythm.No murmurs. No rubs were appreciated.S1, S2 normal. Distal pulses are palpable 2+ bilaterally. GI: Abdomen was soft. Nontender. Non Distended. No pulsatile abdominal masses or bruits. No rebound. No guarding. Bowel sounds were present and normal. Muscle skeletal: Full range of motion of both the upper and lower extremities bilaterally.Normal muscle tone.No assymetrical calf tenderness or swelling. Left lower extremity was slightly shortened compared to the right however with passive range of motion of the lower extremities there is no pain and there is no laxity on anterior posterior lateral compression of the hip. Skin: Palor. No petechia, no purpura. No lesions on the palms or the soles of the feet. No maculopapular rash. NEURO: Patient's eyes were open and responsive to painful stimuli. The patient would not answer questions appropriately. She did however follow simple verbal command. Gait not observed. Result Diagram: 03/28/17 1315 03/28/17 1315 Results 24 hrs Laboratory Tests Test 03/28/17 13:15 03/28/17 15:50 White Blood Count 6.910^3/ul Red Blood Count 3.4110^6/ul Hemoglobin 10.6g/dl Hematocrit 32.1% Mean Corpuscular Volume 94.1fl Mean Corpuscular Hemoglobin 31.1pg Mean Corpuscular Hemoglobin Concent 33.0g/dl Red Cell Distribution Width 14.0% Platelet Count 09349^3/UL Mean Platelet Volume 10.3fl Neutrophils % 70.1% Lymphocytes % 17.4% Monocytes % 9.3% Eosinophils % 2.2% Basophils % 0.3% Neutrophils # 4.910^3/ul Lymphocytes # 1.210^3/ul Monocytes # 0.610^3/ul Eosinophils # 0.210^3/ul Basophils # 0.010^3/ul Nucleated Red Blood Cells # 0.010^3/ul Prothrombin Time 13.4Sec Prothrombin Time Ratio 1.0 INR International Normalized Ratio 1.02 Activated Partial Thromboplast Time 27.6Sec Sodium Level 144mmol/L Potassium Level 3.6mmol/L Chloride Level 106mmol/L Carbon Dioxide Level 27mmol/L Anion Gap 15 Blood Urea Nitrogen 19mg/dl Creatinine 0.58mg/dl Glucose Level 75mg/dl Lactic Acid Level 1.1mmol/L Calcium Level 8.6mg/dl Total Bilirubin 0.2mg/dl Direct Bilirubin 0.00mg/dl Indirect Bilirubin 0.2mg/dl Aspartate Amino Transf (AST/SGOT) 28IU/L Alanine Aminotransferase (ALT/SGPT) 53IU/L Alkaline Phosphatase 66IU/L Troponin I < 0.012ng/ml Total Protein 5.7g/dl Albumin 2.9g/dl Globulin 2.80g/dl Albumin/Globulin Ratio 1.03 Amylase Level 45U/L Lipase 86U/L Urine Color YELLOW Urine Clarity CLEAR Urine pH 5.0 Urine Specific [place] 1.026 Urine Ketones NEGATIVEmg/dL Urine Nitrite NEGATIVEmg/dL Urine Bilirubin NEGATIVEmg/dL Urine Urobilinogen 2+mg/dL Urine Leukocyte Esterase NEGATIVELeu/ul Urine Hemoglobin NEGATIVEmg/dL Urine Glucose NEGATIVEmg/dL Urine Total Protein NEGATIVEmg/dl Current Medications Medications (Trade) Dose Ordered Sig/Jerod Route PRN Reason Start Time Stop Time Status Last Admin Dose Admin Sodium Chloride 2250 ml 2,250 ml BOLUS OVER 2 HOURS STAT IV* 03/28/17 13:00 03/28/17 13:02 DC 03/28/17 13:44 Sodium Chloride (NS) 1,000 ml @ 70 mls/hr [id number] IV 03/28/17 17:00 03/28/17 17:28 IV Flush (NS 3 ml) 3 ml PER PROTOCOL IV 03/28/17 14:30 Lorazepam (Ativan) 0.5 mg Q8H PRN PO ANXIETY 03/28/17 14:30 Ondansetron HCl (Zofran Inj) 4 mg Q6H PRN IV NAUSEA AND/OR VOMITING 03/28/17 14:30 Acetaminophen (Tylenol Tab) 650 mg Q6H PRN PO PAIN LEVEL 1-3 OR FEVER 03/28/17 14:30 Zolpidem Tartrate (Ambien) 5 mg QHS PRN PO INSOMNIA 03/28/17 14:30 Docusate Sodium (Colace) 100 mg Q12H PRN PO CONSTIPATION 03/28/17 14:30 Magnesium Hydroxide (Milk Of Mag) 30 ml DAILY PRN PO CONSTIPATION 03/28/17 14:30 Pantoprazole (Protonix Tab) 40 mg DAILY@06 PO 03/29/17 06:00 Enoxaparin Sodium (Lovenox) 40 mg DAILY SC 03/29/17 09:00 Acetaminophen (Tylenol Tab) 325 mg Q6H PRN PO PAIN AND OR ELEVATED TEMP 03/28/17 14:30 Aspirin (Halfprin) 81 mg DAILY PO 03/29/17 09:00 Atorvastatin Calcium (Lipitor) 20 mg HS PO 03/28/17 21:00 Carvedilol (Coreg) 3.125 mg BID PO 03/28/17 21:00 Citalopram Hydrobromide (Celexa) 20 mg DAILY PO 03/29/17 09:00 Cyanocobalamin (Vitamin B12) 1,000 mcg DAILY PO 03/29/17 09:00 Docusate Sodium (Colace) 250 mg QHS PO 03/28/17 21:00 Gabapentin (Neurontin) 100 mg TID PO 03/28/17 21:00 Lamotrigine (Lamictal) 150 mg QAM PO 03/29/17 09:00 Liothyronine Sodium (Cytomel) 25 mcg DAILY PO 03/29/17 09:00 Oxybutynin Chloride (Ditropan Xl) 10 mg DAILY PO 03/29/17 09:00 Procedures/MDM The patient presented to the emergency department with a transient loss of consciousness with loss of postural tone, suggestive of a syncope episode. The differential diagnosis of syncope is vast but my workup considered common benign disorders to life-threatening processes. Therefore my differential diagnosis included but was not limited to reflex-mediated syncope such as vasovagal or carotid sinus syncope from coughing, sneezing, micturition, or GI stimulation (eg, defecation). Other etiologies in my workup included orthostatic hypotension which could cause syncope from an abrupt drop in venous return to heart from volume depletion. An EKG and cardiac enzymes were obtained to rule out cardiac arrhythmias or ischemia. Cardiopulmonary disease such as valvular disease, hypertrophic cardiomyopathy, pericardial tamponade, or pulmonary embolism were considered as a factor causing the patients syncope episode. The patient had no difference in blood pressure in both arms that could suggest aortic dissection or subclavian steal syndrome. Rectal exam was negative for fecal occult blood that could suggest GI bleeding. Ancillary laboratory work was obtained to evaluate for metabolic or electrolyte abnormalities. The patient had no witnessed brief tonic movements that could suggest postictal confusion. The patient was placed on a cardiac catheterization technician, continuous pulse oximetry and IV access established by nursing staff. Patient did appear to have clinical dehydration and was given a liter bolus of 0.9 normal saline 12 Lead EKG tracing ordered and reviewed by myself showed: Sinus bradycardia 56 bpm and no arrhythmia. ME interval normal. QRS duration normal. No ST segment elevation No ST segment depression. No changes consistent with acute ischemia. The patient will be admitted to Dr. Ugo strickland for further evaluation into the syncope episode. She will go to the telemetry service Departure Diagnosis: Primary Impression: Syncope Qualified Code: R55 - Syncope, unspecified syncope type Condition: Serious NIKA MORALES Mar 28, 2017 13:24
[2017-03-28 13:34] LABS: ADD SCAN DIFF NO
[2017-03-28 13:38] LABS: BASOPHILS % 0.3 % (0.0-2.0); EOSINOPHILS # 0.2 10^3/ul (0.0-0.5); EOSINOPHILS % 2.2 % (0.0-7.0); HEMATOCRIT 32.1 % (37.0-47.0); HEMOGLOBIN 10.6 g/dl (12.0-16.0); LYMPHOCYTES # 1.2 10^3/ul (0.8-2.9); LYMPHOCYTES % 17.4 % (15.0-51.0); MEAN CORPUSCULAR HEMOGLOBIN 31.1 pg (29.0-33.0); MEAN CORPUSCULAR VOLUME 94.1 fl (82.0-101.0); MEAN PLATELET VOLUME 10.3 fl (7.4-10.4); MONOCYTE # 0.6 10^3/ul (0.3-0.9); MONOCYTES % 9.3 % (0.0-11.0); NEUTROPHIL # 4.9 10^3/ul (1.6-7.5); NEUTROPHILS % 70.1 % (39.0-77.0); PLATELET COUNT 243 10^3/UL (140-415); RED BLOOD COUNT 3.41 10^6/ul (4.20-5.40); WHITE BLOOD COUNT 6.9 10^3/ul (4.8-10.8)
--- NOTE | 2017-03-28 13:43 | RADRPT ---
PROCEDURE: Chest x-ray CLINICAL INDICATION: Shortness of breath TECHNIQUE: Chest single view COMPARISON: 07/09/2016 FINDINGS: There is stable mild cardiomegaly and an sclerotic aortic calcification. The pulmonary vessels are n ormal in caliber. Lung volumes are low. Lungs otherwise clear. Costophrenic angles are sharp. The re are probable loose bodies within the right shoulder joint versus synovial calcification. IMPRESSION: No acute cardiopulmonary disease. Stable mild cardiomegaly and an sclerotic aortic calcification Low lung volumes Loose bodies versus synovial calcification right shoulder RPTAT: HH .Bebeto Tuttle MD, Date Time Electronically viewed and signed by .Bebeto Tuttle MD, on 03/28/2017 13:43 .W/
[2017-03-28 13:50] LABS: INR 1.02; PROTIME 13.4 Sec (12.2-14.2)
[2017-03-28 13:51] LABS: PARTIAL THROMBOPLASTIN TIME 27.6 Sec (25.0-35.0)
[2017-03-28 13:54] LABS: ALANINE AMINOTRANSFERASE 53 IU/L (13-69); ALBUMIN 2.9 g/dl (3.3-4.9); ALBUMIN/GLOBULIN RATIO 1.03; ALKALINE PHOSPHATASE 66 IU/L (42-121); AMYLASE 45 U/L (11-123); ANION GAP 15 (8-16); ASPARTATE AMINO TRANSFERASE 28 IU/L (15-46); BILIRUBIN,INDIRECT 0.2 mg/dl (0-1.1); BILIRUBIN,TOTAL 0.2 mg/dl (0.2-1.3); BLOOD UREA NITROGEN 19 mg/dl (7-20); CALCIUM 8.6 mg/dl (8.4-10.2); CARBON DIOXIDE 27 mmol/L (21-31); CHLORIDE 106 mmol/L (97-110); CREATININE 0.58 mg/dl (0.44-1.00); GLUCOSE 75 mg/dl (70-220); POTASSIUM 3.6 mmol/L (3.5-5.1); SODIUM 144 mmol/L (135-144); TOTAL PROTEIN 5.7 g/dl (6.1-8.1)
[2017-03-28 14:10] LABS: TROPONIN-I < 0.012 ng/ml (0.00-0.12)
--- NOTE | 2017-03-28 14:22 | HP ---
Date/Time of Note Date/Time of Note DATE: 03/28/17 TIME: 14:12 Assessment/Plan VTE Prophylaxis VTE Prophylaxis Intervention: LMWH Assessment/Plan Assessment/Plan ASSESSMENT AND PLAN: This is an unfortunate 66-year-old female with advanced progressive dementia, arteriosclerotic cardiovascular disease, hypertension and hypothyroidism who appears to be progressively declining, presents with brief ALOC, ?syncope. 1. ALOC- ?syncope, order carotid u/s, monitor overnight in tele for arrhytmias . Will initiate physical therapy to evaluate his gait and mobility. 2. Dementia, obtain B12 levels. Likely the dementia is a vascular type. Continue aspirin, will put her on a low-dose statin. Continue Aricept or Namenda. 3. Hypertension. Titrate medication up as needed. 4. The patient to be placed on deep vein thrombosis prophylaxis and gastrointestinal prophylaxis. 5. Psychiatric disorder She has been on Zyprexa and Lamictal. may hold zyprexa 2ndary to lethargy, will monitor mood and behavior. 6. asses for UTI 7 Dehydration, IVF. 8. Hypothyroidism. Continue Cytomel, TSH is at range. We will follow. HPI/ROS Admit Date/Time Admit Date/Time Hx of Present Illness The patient is an unfortunate 66-year-old female with history of frontotemporal dementia, hypothyroidism, hypertension, psychiatric disorder, depression, neuropathy who resides at the assisted living facility at [facility], previously admitted to [facility] on 07/09/2016, . During that hospitalization, the patient underwent extensive neurological workup including MRI of the brain, multiple CT scans of the brain and carotid Doppler. The MRI back in 07/10/2016 showed mild to moderate volume loss with moderate to severe chronic small vessel ischemic changes, most pronounced in the frontal regions. Carotid ultrasound at that time was unremarkable for significant stenosis. I have spoken to the patient's in the past. His name is Emil, phone number [phone]. On a previous hospitalization, again back in July, she was seen by the neurologist, Dr. Garrett and based on his exam, there is no significant change and she continues to mumble, it is difficult to understand her, as she has scanning speech but not slurred speech. Again, patient was in usual state of health up until earlier in the day prior to this admission when she presented to the ER, status post fall while being in the bathroom. She underwent multiple diagnostic tests including a CT scan of the brain which showed advanced atrophy for the patient's provided age with frontal lobe predominant white matter disease, but no evidence of acute intracranial abnormality or interval unchanged from 07/09/2016, severe atherosclerotic calcification of the cavernous internal carotid artery. She also underwent a chest x-ray which shows no evidence of acute cardiopulmonary process. There is aortic atherosclerosis. Today she was brought to the ER with brief ALOC, as she was resting her head down. Patient can't give history, appears to be at her regular baseline. clinically dehydrated and weak. ROS patient can't provide any history PMH/Family/Social Past Medical History PAST MEDICAL HISTORY: Includes dementia, psychiatric disorder, hypothyroidism, hypertension. SURGICAL HISTORY: Unknown. ALLERGIES: NO KNOWN DRUG ALLERGIES. FAMILY HISTORY: Unknown. SOCIAL HISTORY: The patient resides at [facility]. MEDICATIONS: Patient's medications reviewed, include the followin. Lorazepam 0.5 mg b.i.d. p.r.n. 2. Zofran 4 mg q.6h. p.r.n. nausea, vomiting. 3. Aspirin 81 mg daily. 4. Calcium plus D 600 mg 2 tablets daily. 5. Citalopram 20 mg daily. 6. Lamotrigine 150 mg daily. 7. Cytomel 25 mcg daily. 8. Losartan 100 mg daily. 9. Olanzapine 2.5 in the morning at 5 at night. 10. Coreg 3.125 b.i.d. 11. Ibuprofen 600 b.i.d. I am not sure if she takes ibuprofen routinely, as it is not listed. Social History Smoking Status: Never smoker Exam/Review of Systems Vital Signs Vitals Vital Signs Date Time Temp Pulse Resp B/P Pulse Ox O2 Delivery O2 Flow Rate FiO2 03/28/17 13:39 56 19 124/71 99 Room Air 03/28/17 12:54 98.8 Labs Result Diagram: 03/28/17 1315 03/28/17 1315 Medications Medications Current Medications Sodium Chloride (NS) 1,000 ml @ 70 mls/hr [id number] IV ; Start 03/28/17 at 14:03 ; Status UNV Lorazepam (Ativan) 0.5 mg Q8H PRN PO ANXIETY; Start 03/28/17 at 14:30; Status UNV Ondansetron HCl (Zofran Inj) 4 mg Q6H PRN IV NAUSEA AND/OR VOMITING; Start at 14:30; Status UNV Acetaminophen (Tylenol Tab) 650 mg Q6H PRN PO PAIN LEVEL 1-3 OR FEVER; Start at 14:30; Status UNV Zolpidem Tartrate (Ambien) 5 mg QHS PRN PO INSOMNIA; Start 03/28/17 at 14:30; Status UNV Docusate Sodium (Colace) 100 mg Q12H PRN PO CONSTIPATION; Start 03/28/17 at 14: 30; Status UNV Magnesium Hydroxide (Milk Of Mag) 30 ml DAILY PRN PO CONSTIPATION; Start at 14:30; Status UNV Pantoprazole (Protonix Tab) 40 mg DAILY@06 PO ; Start 03/29/17 at 06:00; Status UNV Enoxaparin Sodium (Lovenox) 40 mg DAILY SC ; Start 03/29/17 at 09:00; Status UNV Acetaminophen (Tylenol Tab) 325 mg Q6H PRN PO PAIN AND OR ELEVATED TEMP; Start 03/28/17 at 14:30; Status UNV Aspirin (Halfprin) 81 mg DAILY PO ; Start 03/29/17 at 09:00; Status UNV Atorvastatin Calcium (Lipitor) 20 mg HS PO ; Start 03/28/17 at 21:00; Status UNV Carvedilol (Coreg) 3.125 mg BID PO ; Start 03/28/17 at 21:00; Status UNV Citalopram Hydrobromide (Celexa) 20 mg DAILY PO ; Start 03/29/17 at 09:00; Status UNV Cyanocobalamin (Vitamin B12) 1,000 mcg DAILY PO ; Start 03/29/17 at 09:00; Status UNV Docusate Sodium (Colace) 250 mg QHS PO ; Start 03/28/17 at 21:00; Status UNV Gabapentin (Neurontin) 100 mg TID PO ; Start 03/28/17 at 21:00; Status UNV Lamotrigine (Lamictal) 150 mg QAM PO ; Start 03/29/17 at 09:00; Status UNV Liothyronine Sodium (Cytomel) 25 mcg DAILY PO ; Start 03/29/17 at 09:00; Status UNV Oxybutynin Chloride (Ditropan Xl) 10 mg DAILY PO ; Start 03/29/17 at 09:00; Status UNV ARYA MARIANO MD Mar 28, 2017 14:22
[2017-03-28] MEDS ORDERED: DOCUSATE SODIUM 100 MG CAP PO PRN (14:30)
[2017-03-28] MEDS ORDERED: NACL 0.9% 3 ML SYG IV SCH (14:30)
[2017-03-28] MEDS ORDERED: ZOLPIDEM 5 MG TAB PO PRN (14:30)
[2017-03-28] MEDS ORDERED: ONDANSETRON 4 MG INJ IV PRN (14:30)
[2017-03-28] MEDS ORDERED: LORAZEPAM 0.5 MG TAB PO PRN (14:30)
[2017-03-28] MEDS ORDERED: MAGNESIUM HYDROXIDE 30ML CUP PO PRN (14:30)
[2017-03-28] MEDS ORDERED: ACETAMINOPHEN 325 MG TAB PO PRN ×2 (14:30)
--- NOTE | 2017-03-28 15:39 | RADRPT ---
PROCEDURE: US carotid arteries. CLINICAL INDICATION: Dizziness. Altered mental status. TECHNIQUE: Multiple sonographic images of the carotid arteries and vertebral arteries were obtaine d utilizing kelly scale, duplex, and color-flow imaging. The images were reviewed on a PACS workstati on. COMPARISON: No prior studies are available for comparison. FINDINGS: Evaluation of the right carotid bifurcation region reveals mild atherosclerotic disease. Evaluation of the left carotid bifurcation region reveals mild atherosclerotic disease. There is antegrade flow within the vertebral arteries bilaterally. RIGHT CAROTID MEASUREMENTS: Common Carotid Cdumts56 (cm/sec) Internal Carotid Artery 49 (cm/sec) External Carotid Artery 63 (cm/sec) Vertebral Artery 37 (cm/sec) Internal Carotid/Common Carotid1.3 LEFT CAROTID MEASUREMENTS: Common Carotid Ovlpmw52 (cm/sec) Internal Carotid Artery 44 (cm/sec) External Carotid Artery 60 (cm/sec) Vertebral Artery 36 (cm/sec) Internal Carotid/Common Carotid1.2 Validated velocity measurements with angiographic measurements. Velocity criteria are extrapolated f rom diameter data as defined by the Society of Radiologists in Ultrasound Consensus Conference. Radi ology 2003; 229;340-346. This study does indirectly reference the measurement of the distal ICA jordana meter as the denominator for stenosis measurement. IMPRESSION: 1. Less than 50% stenosis bilaterally in the internal carotid arteries. 2. Normal antegrade flow in the vertebral arteries bilaterally. RPTAT: QQ SRU Consensus Conference Criteria for the Diagnosis of Carotid Artery Stenosis* Degree of Stenosis, % ICA PSV, cm/sec Plaque Estimate, % ICA/CCA PSV Ratio Normal <125 None <2.0 <50 <125 <50 <2.0 50 69 125-230 >50 2.0-4.0 >70 but less than near occlusion >230 >50 <4.0 Near occlusion High, low, or undetectable Visible Variable Total occlusion Undetectable Visible, no detectable lumen Not applicable *Cartoid artery stenosis: kelly-scale and Doppler US diagnosis. Society of Radiologists in Ultrasound Consensus Conference. Radiology 2003; 229: 340-346 .Aldo Kinney MD, Date Time Electronically viewed and signed by .Aldo Kinney MD, on 03/28/2017 15:39 .R/
[2017-03-28 16:20] LABS: ADD UMIC NO; UR ASCORBIC ACID 20 mg/dL (NEGATIVE); UR BILIRUBIN (Dip) NEGATIVE (NEGATIVE); UR BLOOD (Dip) NEGATIVE (NEGATIVE); UR CLARITY CLEAR (CLEAR); UR COLOR YELLOW (YELLOW); UR GLUCOSE (Dip) NEGATIVE (NEGATIVE); UR KETONES (Dip) NEGATIVE (NEGATIVE); UR LEUKOCYTE ESTERASE (Dip) NEGATIVE Leu/ul (NEGATIVE); UR NITRITE (Dip) NEGATIVE (NEGATIVE); UR SPECIFIC GRAVITY (Dip) 1.026 (1.003-1.030); UR TOTAL PROTEIN (Dip) NEGATIVE (NEGATIVE); UR UROBILINOGEN (Dip) 2+ mg/dL (NEGATIVE)
[2017-03-28] MEDS: SOD CHLORIDE 0.9% 1,000 ML IV SCH (17:28)
[2017-03-28 18:02] VITALS: BP 137/72; PULSE 51; RESP 14
[2017-03-28 20:04] VITALS: BP 141/75; RESP 16
[2017-03-28 21:00] VITALS: Ht 167.6 cm; Wt 69.9 kg
[2017-03-28 21:03] VITALS: PULSE 50
[2017-03-28] MEDS: DOCUSATE SODIUM 250 MG CAP PO SCH (21:35)
[2017-03-28] MEDS: ATORVASTATIN 20 MG TAB PO SCH (21:35)
[2017-03-28] MEDS: GABAPENTIN 100 MG CAP PO SCH (21:35)
[2017-03-28 23:38] VITALS: BP 134/72; RESP 20
[2017-03-29] VITALS (11 sets, daily range): BP systolic 135–156; BP diastolic 76–81; PULSE 43–56; RESP 17–20
[2017-03-29] MEDS: PANTOPRAZOLE (EC) 40 MG TAB PO SCH (05:49)
[2017-03-29 08:06] LABS: ADD SCAN DIFF NO
[2017-03-29 08:15] LABS: BASOPHILS % 0.2 % (0.0-2.0); EOSINOPHILS # 0.1 10^3/ul (0.0-0.5); EOSINOPHILS % 2.7 % (0.0-7.0); HEMOGLOBIN 9.8 g/dl (12.0-16.0); LYMPHOCYTES # 1.1 10^3/ul (0.8-2.9); LYMPHOCYTES % 22.9 % (15.0-51.0); MEAN CORPUSCULAR HEMOGLOBIN 30.2 pg (29.0-33.0); MEAN CORPUSCULAR HGB CONC 32.7 g/dl (32.0-37.0); MEAN CORPUSCULAR VOLUME 92.6 fl (82.0-101.0); MEAN PLATELET VOLUME 10.6 fl (7.4-10.4); MONOCYTE # 0.4 10^3/ul (0.3-0.9); MONOCYTES % 7.8 % (0.0-11.0); NEUTROPHIL # 3.2 10^3/ul (1.6-7.5); NEUTROPHILS % 65.8 % (39.0-77.0); PLATELET COUNT 211 10^3/UL (140-415); RED BLOOD COUNT 3.24 10^6/ul (4.20-5.40); RED CELL DISTRIBUTION WIDTH 14.3 % (11.5-14.5); WHITE BLOOD COUNT 4.9 10^3/ul (4.8-10.8)
[2017-03-29 08:34] LABS: ALBUMIN 2.4 g/dl (3.3-4.9); ALBUMIN/GLOBULIN RATIO 0.92; BILIRUBIN,INDIRECT 0.2 mg/dl (0-1.1); BILIRUBIN,TOTAL 0.2 mg/dl (0.2-1.3); CALCIUM 7.9 mg/dl (8.4-10.2); CREATININE 0.46 mg/dl (0.44-1.00)
[2017-03-29] MEDS: OXYBUTYNIN (XL) 5 MG TAB PO SCH (09:00)
[2017-03-29] MEDS: SOD CHLORIDE 0.9% 1,000 ML IV SCH (10:16)
[2017-03-29] MEDS: LIOTHYRONINE 25 MCG TAB PO SCH (10:17)
[2017-03-29] MEDS: CYANOCOBALAMIN 500 MCG TAB PO SCH (10:18)
[2017-03-29] MEDS: GABAPENTIN 100 MG CAP PO SCH ×3 (10:18→21:39)
[2017-03-29] MEDS: CITALOPRAM 20 MG TAB PO SCH (10:18)
[2017-03-29] MEDS: LAMOTRIGINE 100 MG TAB PO SCH (10:19)
[2017-03-29] MEDS: ASPIRIN (EC) 81 MG TAB PO SCH (10:19)
[2017-03-29] MEDS: ENOXAPARIN 40 MG/0.4 ML SYG SC SCH (10:35)
--- NOTE | 2017-03-29 14:21 | PN ---
Date/Time of Note Date/Time of Note DATE: 03/29/17 TIME: 14:12 Assessment/Plan VTE Prophylaxis VTE Prophylaxis Intervention: LMWH Lines/Catheters IV [facility]ter [facility] (from [facility]): Peripheral IV Urinary Cath still in place: No Assessment/Plan Assessment/Plan This is an unfortunate 66-year-old female with advanced progressive dementia, arteriosclerotic cardiovascular disease, hypertension and hypothyroidism who appears to be progressively declining, presents with brief ALOC, ?syncope. 1. ALOC- ?syncope, order carotid u/s shows no significant stenosis. now back to baseline, monitor. 2. Dementia, obtain B12 levels. Likely the dementia is a vascular type. Continue aspirin, will put her on a low-dose statin. Continue Aricept or Namenda. 3. Hypertension. Titrate medication up as needed. 4. The patient to be placed on deep vein thrombosis prophylaxis and gastrointestinal prophylaxis. 5. Psychiatric disorder She has been on Zyprexa and Lamictal. resume psych meds as she has dementia with behavioral disturbances. 6. aUA negative for uti 7 Dehydration, s/p IVF, heplock 8. Hypothyroidism. Continue Cytomel, follow TSH levels 9. left a message with , awaiting call back, disposition soon 10. physical therapy to asses gait. Subjective 24 Hr Interval Summary Free Text/Dictation Patient seen, in no distress. Left a message with , spoke with daughter. Noted speech therapy recs, diet changed to puree. Constitutional: disoriented (has dementia) ENT: dysphagia Respiratory: No wheezing Cardiovascular: No lightheadedness Gastrointestinal: No diarrhea Genitourinary: No discharge Musculoskeletal: No neck pain Skin: No laceration Neurologic: confusion Exam/Review of Systems Vital Signs Vitals Vital Signs Date Time Temp Pulse Resp B/P Pulse Ox O2 Delivery O2 Flow Rate FiO2 03/29/17 12:19 56 03/29/17 11:10 98.4 19 135/78 97 03/28/17 18:02 Room Air Intake and Output 03/28/17 03/28/17 03/29/17 15:00 23:00 07:00 Intake Total 1340 ml Output Total 850 ml Balance 490 ml Exam per nursing staff, patient with yelling episodes Constitutional: other (difficult to understand, mumbles) Eyes: PERRL, other (pale) Cardiovascular: No irregular rhythm Gastrointestinal: No tender Results Result Diagram: 03/29/17 0718 03/29/17 0718 Results 24 hrs Laboratory Tests Test 03/28/17 15:50 03/28/17 19:00 03/28/17 20:50 03/29/17 07:18 Urine Color YELLOW Urine Clarity CLEAR Urine pH 5.0 Urine Specific [place] 1.026 Urine Ketones NEGATIVE Urine Nitrite NEGATIVE Urine Bilirubin NEGATIVE Urine Urobilinogen 2+ H Urine Leukocyte Esterase NEGATIVE Urine Hemoglobin NEGATIVE Urine Glucose NEGATIVE Urine Total Protein NEGATIVE Lactic Acid Level 1.2 0.8 White Blood Count 4.9 # Red Blood Count 3.24 L Hemoglobin 9.8 L Hematocrit 30.0 L Mean Corpuscular Volume 92.6 Mean Corpuscular Hemoglobin 30.2 Mean Corpuscular Hemoglobin Concent 32.7 Red Cell Distribution Width 14.3 Platelet Count 211 Mean Platelet Volume 10.6 H Neutrophils % 65.8 Lymphocytes % 22.9 Monocytes % 7.8 Eosinophils % 2.7 Basophils % 0.2 Neutrophils # 3.2 Lymphocytes # 1.1 Monocytes # 0.4 Eosinophils # 0.1 Basophils # 0.0 Nucleated Red Blood Cells # 0.0 Sodium Level 142 Potassium Level 4.0 Chloride Level 109 Carbon Dioxide Level 25 Anion Gap 12 Blood Urea Nitrogen 13 Creatinine 0.46 Glucose Level 75 Calcium Level 7.9 L Total Bilirubin 0.2 Direct Bilirubin 0.00 Indirect Bilirubin 0.2 Aspartate Amino Transf (AST/SGOT) 29 Alanine Aminotransferase (ALT/SGPT) 54 Alkaline Phosphatase 68 Total Protein 5.0 L Albumin 2.4 L Globulin 2.60 Albumin/Globulin Ratio 0.92 Medications Medications Current Medications Sodium Chloride (NS) 1,000 ml @ 70 mls/hr [id number] IV Last administered on 03/29t 10:16; Admin Dose 70 MLS/HR; Start 03/28/17 at 17:00 Lorazepam (Ativan) 0.5 mg Q8H PRN PO ANXIETY; Start 03/28/17 at 14:30 Ondansetron HCl (Zofran Inj) 4 mg Q6H PRN IV NAUSEA AND/OR VOMITING; Start at 14:30 Acetaminophen (Tylenol Tab) 650 mg Q6H PRN PO PAIN LEVEL 1-3 OR FEVER; Start at 14:30 Zolpidem Tartrate (Ambien) 5 mg QHS PRN PO INSOMNIA; Start 03/28/17 at 14:30 Docusate Sodium (Colace) 100 mg Q12H PRN PO CONSTIPATION; Start 03/28/17 at 14: 30 Magnesium Hydroxide (Milk Of Mag) 30 ml DAILY PRN PO CONSTIPATION; Start at 14:30 Pantoprazole (Protonix Tab) 40 mg DAILY@06 PO Last administered on 03/29/17 05 :49; Admin Dose 40 MG; Start 03/29/17 at 06:00 Enoxaparin Sodium (Lovenox) 40 mg DAILY SC Last administered on 03/29/17 10:35 ; Admin Dose 40 MG; Start 03/29/17 at 09:00 Acetaminophen (Tylenol Tab) 325 mg Q6H PRN PO PAIN AND OR ELEVATED TEMP; Start 03/28/17 at 14:30 Aspirin (Halfprin) 81 mg DAILY PO Last administered on 03/29/17 10:19; Admin Dose 81 MG; Start 03/29/17 at 09:00 Atorvastatin Calcium (Lipitor) 20 mg HS PO Last administered on 03/28/17 21:35 ; Admin Dose 20 MG; Start 03/28/17 at 21:00 Carvedilol (Coreg) 3.125 mg BID PO ; Start 03/28/17 at 21:00 Citalopram Hydrobromide (Celexa) 20 mg DAILY PO Last administered on 03/29/17 10:18; Admin Dose 20 MG; Start 03/29/17 at 09:00 Cyanocobalamin (Vitamin B12) 1,000 mcg DAILY PO Last administered on 03/29/17 10:18; Admin Dose 1,000 MCG; Start 03/29/17 at 09:00 Docusate Sodium (Colace) 250 mg QHS PO Last administered on 03/28/17 21:35; Admin Dose 250 MG; Start 03/28/17 at 21:00 Gabapentin (Neurontin) 100 mg TID PO Last administered on 03/29/17 13:35; Admin Dose 100 MG; Start 03/28/17 at 21:00 Lamotrigine (Lamictal) 150 mg QAM PO Last administered on 03/29/17 10:19; Admin Dose 150 MG; Start 03/29/17 at 09:00 Liothyronine Sodium (Cytomel) 25 mcg DAILY PO Last administered on 03/29/17 10 :17; Admin Dose 25 MCG; Start 03/29/17 at 09:00 Oxybutynin Chloride (Ditropan Xl) 10 mg DAILY PO Last administered on 09:00; Admin Dose 10 MG; Start 03/29/17 at 09:00 ARYA MARIANO MD Mar 29, 2017 14:21
[2017-03-29] MEDS: OLANZAPINE 2.5 MG TAB PO SCH (15:56)
[2017-03-29] MEDS ORDERED: OLANZAPINE 5 MG TAB PO SCH (21:00)
[2017-03-29] MEDS: DOCUSATE SODIUM 250 MG CAP PO SCH (21:39)
[2017-03-29] MEDS: ATORVASTATIN 20 MG TAB PO SCH (21:39)
[2017-03-30] VITALS (10 sets, daily range): BP systolic 136–158; BP diastolic 84–96; PULSE 47–58; RESP 17–18
[2017-03-30] MEDS: PANTOPRAZOLE (EC) 40 MG TAB PO SCH (06:12)
[2017-03-30] MEDS: ASPIRIN (EC) 81 MG TAB PO SCH (08:22)
[2017-03-30] MEDS: CITALOPRAM 20 MG TAB PO SCH (08:22)
[2017-03-30] MEDS: LAMOTRIGINE 100 MG TAB PO SCH (08:22)
[2017-03-30] MEDS: GABAPENTIN 100 MG CAP PO SCH ×2 (08:22→12:46)
[2017-03-30] MEDS: CYANOCOBALAMIN 500 MCG TAB PO SCH (08:23)
[2017-03-30] MEDS: LIOTHYRONINE 25 MCG TAB PO SCH (08:23)
[2017-03-30] MEDS: OXYBUTYNIN (XL) 5 MG TAB PO SCH (08:23)
[2017-03-30] MEDS: ENOXAPARIN 40 MG/0.4 ML SYG SC SCH (08:33)
[2017-03-30] MEDS: OLANZAPINE 2.5 MG TAB PO SCH (09:22)
[2017-03-30] MEDS ORDERED: AMLODIPINE 2.5 MG TAB PO SCH (12:30)
--- NOTE | 2017-03-30 12:56 | PDOCDIS ---
Discharge Instructions CONDITION Patient Condition: Stable ACTIVITY: Activity Restrictions: Slowly Increase Activity FOLLOW UP/APPOINTMENTS Follow-up Plan follow up with PMD Dr. Jorgensen, see attached prescriptions. ARYA JORGENSEN MD Mar 30, 2017 12:56
[2017-03-30] MEDS ORDERED: AMLO-145 PO (12:58)
--- NOTE | 2017-04-01 10:40 | DS ---
DATE OF ADMISSION: 03/28/2017 DATE OF DISCHARGE: 03/30/2017 REASON FOR ADMISSION: Questionable syncopal episode and altered level of consciousness. Patient admitted under observation. HOSPITAL COURSE: Patient is a very unfortunate, 66-year-old, female with frontotemporal dementia, hypothyroidism, hypertension, psychiatric disorder, depression, neuropathy. Resides at , and she was brought in as she was found to be slightly more altered; head was down, stooping down. Patient was previously admitted under my care for almost the same with altered level . Underwent extensive workup, and all confirmed that she does have frontotemporal dementia. Upon presentation secondary to the above, it was decided to admit the patient for observation. During her stay lab results were done. She was found to have anemia. In addition, TSH was slightly low at 0.2. Imaging tests, including carotid ultrasound, show less than 50% stenosis bilaterally in the carotid arteries, and chest x-ray shows no acute cardiopulmonary disease. Stable, mild cardiomegaly and sclerotic aortic calcification and low lung volume. Urinalysis was negative. Speech therapy saw her. Because of the patient's psych history, it was decided to put her on a pureed diet just to be extra safe and that could be upgraded at a later time. The patient has been stable. Will need to increase slightly her blood pressure medication and I did so. I spoke with the . His name is Marc, phone number [phone], and he would like her to go back to the assisted living facility. At a later time, if we see that she needs more care, we may decide to send her to a skilled nursing. In the meantime, she will be discharged with home health for close monitoring of her condition. FINAL DIAGNOSES: 1. Rule out syncope/altered level of . 2. Advanced frontotemporal dementia. 3. Hypothyroidism. 4. Extensive psychiatric disorder. 5. Anemia. 6. Previously was diagnosed with B12 deficiency. 7. Hypertension. 8. Depression. 9. Dyslipidemia. 10. Neuropathy. FOLLOWUP: Since she does have these episodes where she taps her hands to the side and yells at times, I did resume all her prior psych meds; hopefully she will be better, especially in the environment where she lives at where they know her. Otherwise she will need more help and of course psychiatry followup. I told the all the above. The patient can follow up on an outpatient basis for further evaluation for anemia and further routine health maintenance testing. DISCHARGE CONDITION: The patient will be discharged today in stable condition. Dictated By: Scott Jorgensen MD /[email or web address]/[email or web address] /Document#: [id number]
== END 2017-03-30 17:44 | disposition home or self-care (01) ==
LOC: E/R 12:39 → TEL 14:19
PROVIDERS: ADMIT Internal Medicine; ATTEND Internal Medicine
DX: R40.4 Transient alteration of awareness (principal); I10 Essential (primary) hypertension; E78.00 Pure hypercholesterolemia, unspecified; F03.90 Unspecified dementia, unspecified severity, without behavioral disturbance, psychotic disturbance, mood disturbance, and anxiety; E03.9 Hypothyroidism, unspecified; D64.9 Anemia, unspecified; F99 Mental disorder, not otherwise specified; F32.9 Major depressive disorder, single episode, unspecified; E78.5 Hyperlipidemia, unspecified; G62.9 Polyneuropathy, unspecified; E86.0 Dehydration; Z79.82 Long term (current) use of aspirin
CPT/HCPCS: 71010; 80053; 81003; 82150; 83605; 83690; 84443; 84484; 85025; 85610; 85730; 86850; 86900; 86901; 87040; 87081; 87086; 92610; 93005; 93880; 97161; 99285; G0378; G8996; G8997; G8998; J1650; J7030